=== PATIENT | female | born 1960 | race Caucasian/White ===

== ENCOUNTER 2020-07-17 10:50 | Outpatient (CLI) | payer BC, SELFPAY ==
--- NOTE | 2020-07-17 08:30 | DI.RAD_ITS ---
EXAM: XR SHOULDER LT COMPLETE 2+V CLINICAL HISTORY: left shoulder pain. TECHNIQUE: 2D digital imaging was performed. COMPARISON: No exams were available for comparison FINDINGS: BONES: No acute fracture is present. No bony destructive lesion is seen. JOINTS: No dislocation present. Mild spurring at the AC joint and undersurface of the acromion. No significant degenerative changes of the glenohumeral joint. SOFT TISSUE: Normal. IMPRESSION: Mild AC joint degenerative changes. DATA REPOSITORY: RADIATION DOSE DELIVERED:
--- NOTE | 2020-07-17 09:00 | DI.RAD_ITS ---
EXAM: XR JOINT SURVEY 1V INDICATION: pain. COMPARISON: CR XR SHOULDER LT COMPLETE 2+V from 07/17/2020 CR XR SHOULDER LT COMPLETE 2+V from 07/17/2020 TECHNIQUE: 2D digital imaging was performed. FINDINGS: An AP lordotic view was performed which includes both AC joints. There is mild bilateral AC joint s purring. The AC joints do not appear significantly widened and appear symmetric. IMPRESSION: Mild degenerative changes of the AC joints. DATA REPOSITORY: RADIATION DOSE DELIVERED:
== END 2020-07-17 10:51 | disposition home or self-care (01) ==
LOC: DIORS 10:50
PROVIDERS: PCP General Practice; Referring Provider General Practice; Visit Provider Student in an Organized Health Care Education/Training Program
DX: M25.512 Pain in left shoulder (principal); M19.012 Primary osteoarthritis, left shoulder
CPT/HCPCS: 73030; 77073

== ENCOUNTER 2021-01-15 12:58 | Outpatient (REF) | payer BC, SELFPAY ==
[2021-01-16 21:24] LABS: COVID-19 RT-PCR UVMMC Result Positive (Negative)
== END 2021-01-15 12:59 | disposition home or self-care (01) ==
LOC: LBN 12:58
PROVIDERS: Visit Provider Nurse Practitioner Family
DX: Z20.822 Contact with and (suspected) exposure to COVID-19 (principal)
CPT/HCPCS: U0003

== ENCOUNTER 2021-02-01 02:43 | Outpatient (CLI) | payer BC, SELFPAY ==
[2021-02-01 10:02] LABS: ALT 18 U/L (14-59); AST 16 U/L (15-37); Albumin 3.8 g/dL (3.4-5.0); Alkaline Phosphatase 68 U/L (46-116); Anion Gap 5.7 mmol/L (3-11); BUN 10 mg/dL (7-18); Bilirubin, Total 0.6 mg/dL (0.2-1.0); CO2 33.3 mmol/L (21.0-32.0); CREATININE 0.8 mg/dL (0.55-1.02); Calcium 9.1 mg/dL (8.5-10.1); Calculated LDL 165 mg/dL (<100); Chloride 104 mmol/L (98-107); Cholesterol 240 mg/dL (<200); Glucose 95 mg/dL (74-106); HDL Cholesterol 65 mg/dL (40-60); Potassium 4.2 mmol/L (3.5-5.1); Sodium 143 mmol/L (136-145); TSH (W/Ref FT4) 1.71 uIU/mL (0.36-3.74); Total Protein 7.2 g/dL (6.4-8.2); Triglyceride 54 mg/dL (<150)
== END 2021-02-01 02:44 | disposition home or self-care (01) ==
DX: E78.2 Mixed hyperlipidemia; G47.00 Insomnia, unspecified; L80 Vitiligo
CPT/HCPCS: 36415; 80053; 80061; 84443

== ENCOUNTER 2021-03-22 01:29 | Outpatient (CLI) | payer BC, SELFPAY ==
--- NOTE | 2021-03-22 12:20 | DI.MAMMO_ITS ---
Exam(s) MAMMO SCREENING EXAM: MAMMO SCREENING CLINICAL HISTORY: screening,Z12.39. TECHNIQUE: Bilateral full field digital CC and MLO mammographic images were obtained with 3D tomosyn thesis and utilizing computer aided detection (CAD). COMPARISON: Prior outside mammograms dating back to 2016, the most recent being March 2020. FINDINGS: There has been no significant change in the appearance and distribution of the fibroglandular tissue There are no CAD designations. There are no new spiculated masses nor malignant appearing microcalcification groups. There is no significant architectural distortion nor skin thickening-retraction. IMPRESSION: No radiographic evidence of malignancy. BI-RADS Category 1 - Negative Breast Density - Category B - Scattered areas of fibroglandular density Breast density Category C or D implies that the patient has dense breast tissue. Dense breast tissue can make it harder to find cancer on a mammogram. Dense breast tissue is also associated with an incr eased risk of breast cancer. This information about the result of the mammogram report was provided to the patient to raise their awareness. Use this report when you speak with the patient about their risks for breast cancer, which includes their family history. At that time, you may recommend additional screening tests (Ultrasoun d or MRI) as these tests may add significant information. A negative radiographic report should not delay biopsy if a dominant or clinically suspicious mass is present. Up to ten percent of cancers are not identified on mammography. A negative report may reinforce clinical impression. Adenosis and dense breasts may obscure an underlying neoplasm. False positive reports average 6 to 10%. Patient will receive a letter notifying them of these results.
== END 2021-03-22 01:49 ==
DX: Z12.31 Encounter for screening mammogram for malignant neoplasm of breast (principal)
CPT/HCPCS: 77063; 77067

== ENCOUNTER 2021-05-27 09:35 | Outpatient (CLI) | payer BC, SELFPAY ==
--- NOTE | 2021-05-27 09:15 | DI.RAD_ITS ---
Exam(s) XR HAND RT COMPLETE EXAM: XR HAND RT COMPLETE CLINICAL HISTORY: pain. TECHNIQUE: 2D digital imaging was performed. COMPARISON: No exams were available for comparison FINDINGS: There is no evidence of fracture nor dislocation. Small calcific densities are seen adjacent to the DIP joints of the 2nd-index and 3rd-middle fingers. Appears to be associated with some degenerative change which is more evident at the DIP joint of the index finger. Other interphalangeal joints appe ar unremarkable. Small density is noted adjacent to the lateral aspect of the index finger meta carp al head. Difficult to determine if this is osseous or subtle foreign body at this level. Correlatio n with clinical findings recommended. There is no evidence of osteomyelitis. There are no erosions at the level of the MCP joints nor elsewhere in the hand. IMPRESSION: DATA REPOSITORY: RADIATION DOSE DELIVERED:
--- NOTE | 2021-05-27 09:30 | DI.RAD_ITS ---
Exam(s) XR WRIST RT COMPL NAVICULAR EXAM: XR WRIST RT COMPL NAVICULAR CLINICAL HISTORY: pain. TECHNIQUE: 2D digital imaging was performed. COMPARISON: No exams were available for comparison FINDINGS: There is no evidence of acute fracture or carpal dislocation. No significant ulnar variance. Mild i ncreased density is noted in the lunate bone but no evidence of volume loss of this bone. No abnorma l density in the scaphoid bone. Scapholunate distance is normal. IMPRESSION: Mild increased density noted in the lunate. No other focal findings. Correlation with any history s uggesting AVN recommended. Scaphoid appears unremarkable. DATA REPOSITORY: RADIATION DOSE DELIVERED:
== END 2021-05-27 09:36 | disposition home or self-care (01) ==
PROVIDERS: Visit Provider Physician Assistant Surgical
DX: M79.641 Pain in right hand (principal); M25.531 Pain in right wrist; M19.131 Post-traumatic osteoarthritis, right wrist
CPT/HCPCS: 73110; 73130

== ENCOUNTER 2021-07-18 18:03 | Outpatient (REF) | payer BC, SELFPAY ==
[2021-07-20 12:39] LABS: COVID-19 RT-PCR UVMMC Result Negative (Negative)
== END 2021-07-18 18:04 | disposition home or self-care (01) ==
LOC: LBN 18:03
PROVIDERS: Visit Provider Emergency Medicine
DX: R05.9 Cough, unspecified (principal); R09.81 Nasal congestion; Z20.822 Contact with and (suspected) exposure to COVID-19
CPT/HCPCS: U0003

== ENCOUNTER 2021-10-18 07:16 | Day surgery (SDC) | payer BC, SELFPAY ==
--- NOTE | 2021-10-17 12:29 | W.COLOREPORT ---
Colonoscopy Report Date of procedure: 10/18/21 Pre-op diagnosis general: family hx of CRC- father in 50's Post-op diagnosis procedure note: other (I/E hemorrhoids/diverticula) Surgeon: Amairani Varma Anesthesia Type: General:No Airway Pathology: none sent Complications: None Disposition: same day Prep: Miralax/Dulcolax Retraction Time: 8 Procedure Description: After informed consent was obtained the patient was taken to the procedure room and placed in a left decubitous position. Monitors were applied and a time out was done. The patients name, date of , procedure, allergies to medications and metal in their body was reviewed. The patient was then sedated. Once sedated and comfortable a rectal exam was done. External exam was normal. Internal exam revealed a normal sphincter tone and no palpable masses. She has moderate internal and external hemorrhoids. The scope was then introduced and retrofelexed. Grade I internal hemorrhoids and hemorrhoidal tags were identified. The scope was then advanced to the cecum without difficulty. The TI and appendiceal orifice were identified. The prep was BB PS 3 in all segments for a total of 9.. The scope was then slowly retracted over 8 minutes back into the rectum. No AVMs or polyps were visualized today. She does have mil diverticular disease confined to the sigmoid colon with no signs of active bleeding or infection today. the scope was removed and the patient was woken up and taken back to Same day surgery in stable condition. The patient tolerated the procedure well and there were no immediate complications. Follow up: The patient should follow up in 5 years unless they develop changes in bowel habits or other new gastrointestinal complaints. We should also plan on doing internal hemorrhoid banding at the same time.
--- NOTE | 2021-10-17 12:40 | PDOC.DSDIS_ITS ---
Discharge Plan Disposition Patient Disposition: HOME Condition: Good Discharge Details Reason For Visit: colon scope Attending Provider: Amairani Varma Primary Care Provider: Christina Aguilar Home Meds and New Rx's Prescriptions: No Action fluticasone propion-salmeterol [Advair Diskus] 100-50 mcg/dose blister with device 1 ea Inhalation BID Qty: 60 4RF naproxen sodium [Aleve] 220 mg capsule 220 mg PO BID PRN fluticasone propionate [Flonase Allergy Relief] 50 mcg/actuation spray,suspension 1 spray intranasal BID Qty: 16 2RF Rx Instructions: administer in to left nostril 2 x per day cholecalciferol (vitamin D3) 2,000 UNIT tablet 2,000 unit PO DAILY albuterol sulfate 2.5 mg /3 mL (0.083 %) solution for nebulization 2.5 mg inhalation Q6H albuterol sulfate 90 mcg/actuation HFA aerosol inhaler 2 puff inhalation Q6H PRN (Reason: shortness of breath or wheezing) Qty: 6.7 6RF Discharge Instructions Additional Instructions: [facility] Colonoscopy Post- Op Instructions Instructions for Everyone who is given Anesthesia: For your safety, please do the following for the next twenty-four (24) hours: *Do Not operate a motor vehicle (car, truck, motorcycle, etc.) *Do Not drink alcoholic beverages or use any recreational drugs for the first 24 hours or while taking pain medications. The medications in your body may have a reaction that can be dangerous. *Do Not make any important decisions or sign any important papers. Findings: mild diverticula Make sure you are moving your bowels on a regular basis and avoid straining Follow up: repeat in 5 1. No lifting over 20 pounds or strenuous activity for the first 24 hours after your procedure. After 24 hours there are no restrictions on your activity but you may feel fatigued for a few days. 2. After you arrive home you may have a light meal and return to your normal diet as you can tolerate it without feeling sick to your stomach. 3. You may have a bloated, gaseous feeling in your belly (abdomen) after a colonoscopy. Passing gas and belching will help. Walking or lying down on your left side with your knees flexed may relieve the discomfort. Call the office at [phone] (Office) or [phone] (Hospital) right away if you notice any of the following: a.Vomiting of blood or ?coffee ground stools?. b.Rectal bleeding 1Tbsp, blood clots or continuous bleeding. c.Severe belly (abdominal) pain. d.A hard distended belly (abdomen) and an inability to pass gas. 4. Please don?t expect to have a normal BM (bowel movement) for 2-3 days after your procedure. 5. If there are questions regarding the findings of your procedure, please contact your doctor 6. If you are unable to contact your doctor with a problem, contact the hospital at [phone]. 7. Continue all your regular medications unless directed otherwise. I understand the above instructions and have no questions. Signature of Patient or Adult Escort Name of Responsible Adult Escort Signature of Nurse Date/Time Stand Alone Forms: Anesthesia Discharge Inst., Tracy Garcia ([facility]) Activity:: See above Diet:: See above Discharge Orders Discharge Orders: Discharge Order (Routine); Ordered 10/17/21 Ordered By: Amairani Varma
[2021-10-18 07:41] VITALS: BP 117/70; PULSE 73; RESP 18; TEMP 36.7; O2SAT 97
[2021-10-18] MEDS: Lactated Ringers 1,000 ML 80 ML IV (08:06)
--- NOTE | 2021-10-18 08:08 | W.ANESPRE ---
General Info Date of Service Date Performed: 10/18/21 Height: 5 ft Weight: 60.6 kg Body Mass Index (BMI): 26.1 Surgical Procedure: Operation Date: 10/18/21 08:20 Proposed Procedure Side Surgeon kajal Varma, Meds Allergies and Home Medications Allergies Allergy/AdvReac Type Severity Reaction Status Date / Time Sulfa (Sulfonamide Allergy Intermediate HIVES Verified 10/18/21 07:47 Antibiotics) Home Medication Medication Instructions Recorded cholecalciferol (vitamin D3) 50 2,000 unit PO DAILY 12/07/17 mcg (2,000 unit) tablet albuterol sulfate 2.5 mg/3 mL 2.5 mg inhalation Q6H 01/01/21 (0.083 %) solution for nebulization fluticasone propionate 50 1 spray intranasal BID #16 grams 02/26/21 mcg/actuation nasal spray,suspension (Flonase Allergy Relief) naproxen sodium 220 mg capsule 220 mg PO BID PRN 02/26/21 (Aleve) fluticasone 100 mcg-salmeterol 50 1 ea inhalation BID #60 ea 07/18/21 mcg/dose blistr powdr for inhalation (Advair Diskus) albuterol sulfate 90 mcg/actuation 2 puff inhalation Q6H PRN 07/22/21 aerosol inhaler shortness of breath or wheezing #6.7 grams Current Visit Medications: Current Medications Generic Name Dose Route Start Last Admin Trade Name Freq PRN Reason Stop Dose Admin Hyoscyamine Sulfate 0.125 mg 10/17/21 12:41 Hyoscyamine 0.125 Mg Sl/Oral/Chew SL DIRECTED PRN Ringer's Solution 1,000 mls @ 80 mls/hr 10/18/21 06:00 10/18/21 08:06 IV 11/16/21 23:59 80 mls/hr INFUSION ABDI Administration IV Miscellaneous Supplies 1 each 10/18/21 06:00 Iv Access IV 11/16/21 23:59 DIRECTED ABDI Ondansetron HCl 4 mg 10/17/21 12:41 Ondansetron 4 Mg/2 Ml Vial IVP Q4H PRN PRN Nausea / Vomiting Sodium Chloride 0 ml 10/18/21 06:00 Normal Saline Flush 10 Ml Syr IV 11/16/21 23:59 PRN PRN Sodium Chloride 0 ml 10/18/21 06:00 Normal Saline 10 Ml Vial IJ 11/16/21 23:59 DIRECTED PRN Sterile Water 0 ml 10/18/21 06:00 Water,Injection,Sterile 10 Ml Vial IJ 11/16/21 23:59 DIRECTED PRN PFSH Active Problems Active Problems: Problem Status Onset Code Colon cancer screening Z12.11 Colonic polyp K63.5 Asthma J45.909 Medical History Medical History Anxiety Arthritis Carpal tunnel syndrome right upper limb Elbow tendinitis Enlarged lymph nodes Glaucoma 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 stated when she delivered her 3rd child she had a reaction to anesthesia where her face swelled up, but has not had any reactions since then with any colonoscopies that she has had since then. Surgical History Surgical History H/O section x3 H/O tubal ligation S/P skin biopsy (~11/20/10) Tobacco Smoking/Tobacco Use Status: Never Second hand exposure: Yes Alcohol Alcohol Intake: current Alcohol intake frequency: a few times a month Alcohol type: beer, wine and hard liquor Substance Use Substance use: Never Substance use type: does not use Vital Signs and Lab Results Vital Signs Most Recent Vital Signs in EMR: Most Recent Vital Signs Temp Pulse Resp BP Pulse Ox 36.7 C 73 18 117/70 97 10/18/21 07:41 10/18/21 07:41 10/18/21 07:41 10/18/21 07:41 10/18/21 07:41 Lab Results Blood Type / Crossmatch: No Data to Display Complete Blood Count: No Data to Display Complete Metabolic Panel: No Data to Display Liver Function Panel: No Data to Display Coagulation Panel: No Data to Display Cardiac Panel: No Data to Display Arterial Blood Gas: No Data to Display Venous Blood Gas: No Data to Display Pancreas Panel: No Data to Display Thyroid Panel: No Data to Display Infectious Disease: No Data to Display Blood Cultures: No Data to Display Toxicology Panel: No Data to Display Anesthesia Assessment and Plan Anesthesia History Personal History: Other Family History: No Family History of Anesthesia Complications Exercise Tolerance Exercise Tolerance: Metabolic Equivalents>4 Pertinent Negatives Pertinent Negatives: No Major Cardiovascular Symptoms or Complaints and No Major Pulmonary Symptoms or Complaints Cardiac & Pulmonary Exam Cardiac Exam: Normal S1/S2 Heart Sounds Pulmonary Exam: Clear Bilateral Breath Sounds Implantable Cardiac Device Does patient have a Pacemaker or an ICD?: No Airway Exam Known Difficult Airway: No Mallampati Class: 2 Mouth Opening: Normal (> 3cm) Thyromental Distance: Greater than 3 cm Neck Range of Motion: Full ROM Neck Circumference: Normal Teeth Condition: Normal Dentition ASA Classification ASA Score: ASA 2 Emergency Case?: No NPO Status NPO Status: NPO Clears >2 hours, Solids >8 hours Anesthesia Plan Resuscitation Status: Full Code Anesthesia Technique: General Anesthesia Airway Planned: Natural Airway Monitors Used: Standard Monitors
[2021-10-18 08:10] VITALS: BMI 26.1
[2021-10-18 08:59] VITALS: BP 76/47; PULSE 67; RESP 18; TEMP 36.6; O2SAT 99
[2021-10-18 09:06] VITALS: BP 80/45; PULSE 65; RESP 18; TEMP 36.7; O2SAT 99
[2021-10-18] MEDS: Hyoscyamine 0.125 MG SL/ORAL/CHEW SL (09:11)
[2021-10-18 09:20] VITALS: BP 106/93; PULSE 65; RESP 18; TEMP 36.6; O2SAT 100
[2021-10-18 09:37] VITALS: BP 99/54; PULSE 63; RESP 18; TEMP 36.6; O2SAT 100
--- NOTE | 2021-10-18 14:01 | W.ANESPOSTOP ---
Postoperative Evaluation Date, Time and Location Date Performed: 10/18/21 Time Performed: 09:37 Patient Location: Day Surgery Unit Vital Signs Most Recent Imported Vital Signs: Most Recent Vital Signs Temp Pulse Resp BP Pulse Ox 36.6 C 63 18 99/54 L 100 10/18/21 09:37 10/18/21 09:37 10/18/21 09:37 10/18/21 09:37 10/18/21 09:37 Pain Score Most Recent Pain Score: Most Recent Pain Score Pain Level 1 10/18/21 09:37 Assessment Mental Status: Awake (Alert & Oriented to Patient Baseline) Airway and Respiratory Function: Patent airway with normal (patient baseline) respiratory exam Cardiovascular Function: Hemodynamically Stable Hydration Status: Adequately Hydrated Nausea & Vomiting: No Nausea or Vomiting Pain: Pt. Denies Any Pain Peripheral Nerve Block: Patient did not receive a nerve block
== END 2021-10-18 07:17 | disposition home or self-care (01) ==
PROVIDERS: PCP Family Medicine; Visit Provider Surgery
PROC: 0DJD8ZZ Inspection of Lower Intestinal Tract, Via Natural or Artificial Opening Endoscopic (ICD-10-PCS; CPT 45378; principal; 2021-10-18 08:15)
DX: Z12.11 Encounter for screening for malignant neoplasm of colon (principal); Z80.0 Family history of malignant neoplasm of digestive organs; K64.0 First degree hemorrhoids; K57.30 Diverticulosis of large intestine without perforation or abscess without bleeding
CPT/HCPCS: 45378; J3490

== ENCOUNTER 2022-04-23 05:06 | Outpatient (CLI) | payer BC, SELFPAY ==
[2022-04-23 08:27] LABS: ALT 19 U/L (14-59); AST 19 U/L (15-37); Albumin 3.7 g/dL (3.4-5.0); Alkaline Phosphatase 65 U/L (46-116); Anion Gap 5.8 mmol/L (3-11); BUN 11 mg/dL (7-18); Bilirubin, Total 0.5 mg/dL (0.2-1.0); CO2 32.2 mmol/L (21.0-32.0); CREATININE 0.9 mg/dL (0.55-1.02); Calcium 8.9 mg/dL (8.5-10.1); Calculated LDL 154 mg/dL (<100); Chloride 103 mmol/L (98-107); Cholesterol 235 mg/dL (<200); Estimated GFR 71.83 (mL/min/1.73m2); Glucose 108 mg/dL (74-106); HDL Cholesterol 68 mg/dL (40-60); Potassium 3.6 mmol/L (3.5-5.1); Sodium 141 mmol/L (136-145); Total Protein 7.3 g/dL (6.4-8.2); Triglyceride 67 mg/dL (<150)
== END 2022-04-23 05:07 | disposition home or self-care (01) ==
LOC: LOS 05:06 → LBO 07:57
PROVIDERS: PCP Nurse Practitioner Family
DX: Z00.00 Encounter for general adult medical examination without abnormal findings (principal); E78.5 Hyperlipidemia, unspecified; F41.8 Other specified anxiety disorders
CPT/HCPCS: 36415; 80053; 80061

== ENCOUNTER 2022-05-16 09:53 | Outpatient (CLI) | payer BC, SELFPAY ==
--- NOTE | 2022-05-16 09:00 | DI.RAD_ITS ---
Exam(s) XR ANKLE LT COMPLETE EXAM: XR ANKLE LT COMPLETE CLINICAL HISTORY: continued left ankle pain, rolled it 5 months ago M25.572 PAIN LEFT ANKLE TECHNIQUE: 2D digital imaging was performed of the left ankle. Three images were obtained. AP, lat eral and oblique views were obtained. COMPARISON: No exams were available for comparison FINDINGS: BONES: No acute fracture is present. No bony destructive lesion is seen. JOINTS:The ankle mortise is normally aligned. SOFT TISSUE: Vascular calcifications are present. IMPRESSION: Unremarkable radiographs of the left ankle. DATA REPOSITORY: RADIATION DOSE DELIVERED:
--- OUTSIDE RECORDS SUMMARY | 2022-05-16 09:56 | XMS_ITS ---
:1960 Author Organization [facility] Address [address] [place], [place] [id number] Care Team Providers Name Role Phone Jose Eli Unavailable Unavailable PROBLEMS Type Condition ICD9-CM Code HRP33-HR Code Onset Condition SNO MED Code Dates Status Problem Asthma with acute 493.92 Active 28 1801993 exacerbation Problem Allergic asthma 493.00 Active 6308 8003 w/o mention of status asthmaticus or acute exacerbation Problem BENIGN NEOPLASM - 211.3 Active 92 079609 POLYPS ALLERGIES Substance Reaction Event Type Date Status Sulfa Hives Non Drug Allergy Jan, Active environmental Unknown Non Drug Allergy Jan, Active ENCOUNTERS Encounter Location Date Diagnosis [address] Jan, Encntr fo r educational recruiter exam [address] (general) (routi ne) w/o abn [place], [place] findings Z01.[id number] Jan, Encntr fo r educational recruiter exam [facility] [address] (general) (routi ne) w/o abn [place], [place] findings Z01.[id number] Dec, Encounter for screening [address] mammogram for gabriel floresant [place], [place] neoplasm of [address] Z12.[id number] Jan, [address] [place] [id number] Jan, Encntr fo r educational recruiter exam [facility] [address] (general) (routi ne) w/o abn [place], [place] findings Z01.419 and [id number] Encounter for sc reening mammogram for ma lignant neoplasm of bartol[address] st Z12.[address] Jan, Encntr fo r educational recruiter exam [address] (general) (routi ne) w/o abn [place] findings Z01.419 and [id number] Encounter for sc reening for malignant neopla sm of cervix Z12.[address] Dec, Encounter for screening [address] mammogram for ma lignant [place] neoplasm of [address] Z12.[id number] Dec, [place] [id number] [address] Dec, Encntr fo r educational recruiter exam [facility] [address] (general) (routi ne) w/o abn [place], [place] findings Z01.[id number] August, Encounter for screening for [address] malignant neopla sm of [place] breast Z12.[id number] Nov, Encntr fo r educational recruiter exam [address] (general) (routi ne) w/o abn [place] findings Z01.419 and Other [id number] screening mammog brant Z12.[address] Nov, ROUTINE G YN EXAMINATION [facility] [address] V72.31 [place], [place] [id number] [address] August, ROUTINE G YN EXAMINATION [facility] [address] V72[address]31 [place], [place] [id number] [address] August, SCREEN MA MMOGRAM NEC V76.[address] [facility] [address] [place], [place] [id number] [address] August, ROUTINE G YN EXAMINATION [facility] [address] V72[address]31 [place], [place] [id number] [address] Jul, SCREEN MA MMOGRAM NEC V76.[address] [facility] [address] [place], [place] [id number] [address] Jan, ROUTINE G YN EXAMINATION [facility] [address] V72.31 [place], [place] [id number] [facility] [address] [place] [address] Nov, [facility] [address] [place] [address] [id number] [facility] [address] [place] [address] Nov, [facility] Road [address] [place] [address] [id number] [facility] [address] [place] [address] Nov, NEOPLAS M NOS 239.9 [facility] Road [address] [place] [id number] August, [place], [place] [id number] [address] August, [place] [id number] [address] Jul, SCREEN MA MMOGRAM NEC V76.[address] [id number] [address] Jun, [employer] ONTINENCE 788.33 [facility] [address] [place] [id number] Apr, Epicond ylitis 726.32 [place], [place] [id number] [address] Jan, ROUTINE G YN EXAMINATION [facility] [address] V72.31 and SCREE N MAMMOGRAM [place] NEC V76.[id number] Oct, [place] [id number] [address] Oct, [place] [id number] [address] Jul, ROUTINE MEDICAL EXAM (18 [place] YRS [place] OLDER ) V70.0 ; [id number] Allergic asthma w/o mention of status asthma ticus or acute exacerbati on 493.00 ; SCREEN-CARDIOVAS C NEC V81.2 ; SCREEN-THYROID DISORDER V77.0 ; Anemia, iron deficiency, unsp ecified 280.9 and Lympha denopathy 785.[address] Jun, Asthma with acute [place] exacerbation 493.92 ; Acute [id number] maxillary sinusi tis 461.0 and Acute otitis media NOS 382.[address] Jan, ROUTINE G YN EXAMINATION [facility] 31 V72.31 [place], [place] [id number] [facility] [address] [place] [address] Nov, [facility] Road [address] [place] [id number] Oct, BENIGN NEOP LASM - POLYPS [facility] [place], [place] 211.3 [id number] [facility] [address] [place] [address] 16 Oct, 2008 [facility] [address] [place] [address] [id number] [facility] [address] [place] [address] August, [place], [place] [id number] [facility] [address] [place] [address] August, ROUTINE MEDICAL EXAM (18 [place] YRS [place] OLDER ) V70.0 ; [id number] Vitiligo 709.01 and ASTHMA NOS 493.[address] Jul, Current tear of medial [place] cartilage or meniscus of [id number] knee 836.0 ; Lax ity of ligament 728.4 a nd Sprain of medial collat eral ligament of knee 844.[address] Jul, Joint p ain,knee 719.46 and [place] Laxity of lig ament 728.[id number] Jul, [place], [place] [id number] IMMUNIZATIONS Vaccine Route Administration Date Status TD VACCINE - Adults Unknown November 07, 2010 Administered Tdap - Adult IM Intramuscular July 10, 2009 Administered PNEUMOCOCCAL VACCINE (6 YRS AND IM Intramuscular July 10, 2009 Administered OLDER) Peds - Td Unknown November 12, 1997 Administered SOCIAL HISTORY Qualifiers Date Never Smoker REASON FOR REFERRAL FUNCTIONAL STATUS PLAN OF CARE Activity Details Follow Up [facility] in 1 Year Reason: Future Test MAMMOGRAPHY BILATERAL SCREE [id number] VITAL SIGNS Height 61.5 in 2021-02-13 Height 61.5 in 2020-02-01 Height 61.5 in 2019-01-19 Height 61.5 in 2018-01-18 Height 61.5 in 2016-12-29 Height 61.5 in 2015-12-19 Height 61.5 in 2015-11-26 Height 61.5 in 2014-11-20 Height 61.5 in 2013-09-09 Height 61.5 in 2012-08-23 Height 61.5 in 2011-02-14 Height 61.5 in 2010-11-20 Height 61.5 in 2010-07-15 Height 61.5 in 2010-05-20 Height 61.5 in 2010-02-08 Height 62 in 2009-08-14 Height 61 in 2009-02-02 Weight 137.2 lbs 2021-02-13 Weight 132.8 lbs 2020-02-01 Weight 126.4 lbs 2019-01-19 Weight 139.2 lbs 2018-01-18 Weight 141.6 lbs 2016-12-29 Weight 137.4 lbs 2015-12-19 Weight 139.4 lbs 2015-11-26 Weight 138.8 lbs 2014-11-20 Weight 139.2 lbs 2013-09-09 Weight 140 lb 6 oz lbs 2012-08-23 Weight 138.6 lbs 2011-02-14 Weight 135 lbs 2010-11-20 Weight 141.6 lbs 2010-07-15 Weight 141.4 lbs 2010-07-12 Weight 140.1 lbs 2010-05-20 Weight 138.4 lbs 2010-02-08 Weight 135.6 lbs 2009-08-14 Weight 134.4 lbs 2009-07-10 Weight 134 lbs 2009-02-02 Weight 130.6 lbs 2008-09-07 Weight 103.4 lbs 2008-08-09 Temperature 95.8 degrees Fahrenheit 2010-11-20 Temperature 97.7 degrees Fahrenheit 2010-05-20 Temperature 97.9 degrees Fahrenheit 2009-08-14 Temperature 98.0 degrees Fahrenheit 2009-07-10 Temperature 98.4 degrees Fahrenheit 2008-09-07 Heart Rate 72 /min 2010-11-20 Heart Rate 64 /min 2010-05-20 Heart Rate 82 /min 2009-08-14 Heart Rate 84 /min 2009-07-10 Heart Rate 80 /min 2008-09-07 Heart Rate 64 /min 2008-08-09 Oximetry 99 2009-07-10 Oximetry 100 2008-09-07 Respiratory Rate 16 /min 2010-11-20 Respiratory Rate 16 /min 2010-05-20 Respiratory Rate 16 /min 2009-08-14 Respiratory Rate 16 /min 2009-07-10 Respiratory Rate 18 /min 2008-09-07 Respiratory Rate 16 /min 2008-08-09 BMI 25.50 kg/m2 2021-02-13 BMI 24.68 kg/m2 2020-02-01 BMI 23.49 kg/m2 2019-01-19 BMI 25.87 kg/m2 2018-01-18 BMI 26.32 kg/m2 2016-12-29 BMI 25.54 kg/m2 2015-12-19 BMI 25.91 kg/m2 2015-11-26 BMI 25.80 kg/m2 2014-11-20 BMI 25.87 kg/m2 2013-09-09 BMI 26.09 kg/m2 2012-08-23 BMI 25.76 kg/m2 2011-02-14 BMI 25.09 kg/m2 2010-11-20 BMI 26.32 kg/m2 2010-07-15 BMI 26.04 kg/m2 2010-05-20 BMI 25.72 kg/m2 2010-02-08 BMI 24.80 kg/m2 2009-08-14 BMI 25.32 kg/m2 2009-02-02 Blood pressure systolic 140 mm Hg 2021-02-13 Blood pressure diastolic 74 mm Hg 2021-02-13 MEDICATIONS Medication Instructions Dosage Frequency Start End Duration Statu s Date Date MEDICATION . 1 day Active LIST: The following medication list was created by your report.If the medications on the printed list differ from the medications you take at home, please contact your primary care provider. Advair Diskus Inhalation Twice 1 puff 12h Jan, ctive 100-50 MCG/DOSE a day 2020 Vitamin D 1000 Orally Once a 4,000 24h Act darrin UNIT day Ventolin HFA Inhalation four 2 puffs Jun, day Not -Takin 108 (90 Base) times a day as 2009 g MCG/ACT needed Albuterol Inhalation q4-6 1 neb. prn Jul, Act darrin Sulfate (2.5 hours prn 2010 MG/3ML) 0.083% Advil 200 MG Orally at night 1 tablet No t-Takin g PROCEDURES Procedure Date Ordered Result Body Site IMMUNIZATION ADMINISTRATION July 10, 2009 PNEUMOCOCCAL VACCINE (6 YRS AND OLDER) July 10, 2009 BIOPSY OF SKIN SINGLE LESION Nov 20, 2010 IMMUNIZATION ADMIN, EACH ADD July 10, 2009 Tdap - Adult July 10, 2009 COLONOSCOPY W HOT BIOPSY November 14, 2008 RESULTS Name Result Date Reference Range MG MAMMOGRAPHY BILATERAL SCREENING 2020-03-21 MG MAMMOGRAPHY BILATERAL SCREENING 2019-02-17 Pap Lb, rfx HPV all pth 2018-01-18 . Note: . Clinical history: DIAGNOSIS: Specimen adequacy: Additional comment: Recommendation: Performed by: Electronically signed by: Test ordered: Maturation index: Amended report: Addendum: QC reviewed by: Cytology history: Special procedure: QA comment: Diagnosis provided by: Source: Pathologist provided ICD9: Clinician provided ICD9: Interpretation LBP CPT Code Automation MG MAMMOGRAPHY BILATERAL SCREENING 2018-01-21 MG MAMMOGRAPHY BILATERAL SCREENING 2013-09-09 Pap Lb, rfx HPV all pth 2012-08-23 . Note: . Clinical history: DIAGNOSIS: Specimen adequacy: Additional comment: Recommendation: Performed by: Electronically signed by: Test ordered: Maturation index: Amended report: Addendum: QC reviewed by: Cytology history: Special procedure: QA comment: Diagnosis provided by: Source: Pathologist provided ICD9: Clinician provided ICD9: Interpretation LBP CPT Code Automation MG MAMMOGRAPHY BILATERAL SCREENING 2012-08-23 MG MAMMOGRAPHY BILATERAL SCREENING 2011-08-12 MAMMOGRAPHY BILATERAL SCREE 2010-08-06 T4, FREE 2009-08-14 FREE T4 0.71 0.61-1.12 CBC WITH DIF 2009-08-14 CBC WITH DIF WBC 4.4 4.80-10.80 RBC 3.97 4.20-5.40 HGB 12.9 12.0-16.0 HCT 37.5 37.0-47.0 MCV 94.6 81.0-99.0 MCH 32.7 27.0-31.0 MCHC 34.5 32.0-36.0 RDW 13.1 11.50-14.50 PLT 234 130-400 MPV 6.4 7.40-10.40 NE% 53.9 42.20-75.20 LY% 34.4 20.50-51.10 MO% 7.3 1.70-9.30 EO% 3.9 0.90-2.90 BA% 0.5 0.0-0.80 NE# 2.4 1.40-6.50 LY# 1.5 1.20-3.40 MO# 0.3 0.10-0.60 EO# 0.2 0.0-0.20 BA# 0.0 0.0-0.20 RBC MORPH ANISO MICRO MACRO HYPO PLT ESTIMATE TSH 2009-08-14 TSH 1.19 0.49-4.67 CORONARY RISK PROFILE 2009-08-14 CORONARY RISK PROFILE CORONARY RISK PROFILE CHOLESTEROL 203 129-209 TRIGLYCERIDES 58 40-175 HDL CHOL 49 39-90 NON HDL CHOL 154 100-190 LDL DIRECT 133 10-100 CHD RISK 4.1 2.30-5.90 MAMMOGRAPHY BILATERAL SCREE 2009-08-03 XR CHEST PA&LAT 2009-07-04 Colonoscopy CBC WITH DIF 2008-09-07 CBC WITH DIF WBC 6.5 4.80-10.80 RBC 4.10 4.20-5.40 HGB 13.4 12.0-16.0 HCT 38.9 37.0-47.0 MCV 94.9 81.0-99.0 MCH 32.6 27.0-31.0 MCHC 34.3 32.0-36.0 RDW 13.1 11.50-14.50 PLT 290 130-400 MPV 7.6 7.40-10.40 NE% 59.2 42.20-75.20 LY% 29.9 20.50-51.10 MO% 6.1 1.70-9.30 EO% 4.5 0.90-2.90 BA% 0.3 0.0-0.80 NE# 3.9 1.40-6.50 LY# 1.9 1.20-3.40 MO# 0.4 0.10-0.60 EO# 0.3 0.0-0.20 BA# 0.0 0.0-0.20 RBC MORPH ANISO MICRO MACRO HYPO PLT ESTIMATE TSH 2008-09-07 TSH TSH 1.05 0.49-4.67 [facility]IN - [facility] 2008-09-07 [facility]IN - [facility] FERRITIN 10 11-307 B12/FOLATE 2008-09-07 B12/FOLATE B12 298 FOLATE 13.6 MAMMOGRAPHY BILATERAL SCREE 2008-07-25 REASON FOR VISIT TICKER WIRER well woman, TICKER WIRER Well Woman, TICKER WIRER well woman, TICKER WIRER EST WELL WOMAN, *Mammogram scheduling, Breast Imaging, TICKER WIRER well woman, TICKER WIRER EST WELL WOMAN, Mammo order needed, Update Demographics - Additional Info,TICKER WIRER EST WELL WOMAN EXAM, TICKER WIRER EST WELL WOMAN EXAM, Appt for well woman exam & Mammo order needed,TICKER WIRER Well woman exam, TICKER WIRER wellwoman, TICKER WIRER well woman, TICKER WIRER well woman exam, mammo order, TICKER WIRER Well WomanExam-no issues to discuss, mammogram, Annual pe and pap-has had a chest cold/sinus issues x 3 weeks,LAZARA, ? infection biopsy site, staph infection, infection?, LAZARA lymphadenopathy groin, referring Zoe Waldrop, script dose, script refill, mammogram order, TICKER WIRER Bladder issues-is having incontinence and frequency that has recently gotten worse. negative urinalysis in the office, TICKER WIRER Bladder issues-hasbeen having urinary frequency, has had issues with leaking for a long time, IM - Right elbow pain, Annual pe and pap-no issues to discuss, med refill, script refill , IM PE //PAP & Breast exam doneby Dr Eli in June 2009, recent mammogram, IM head cold, here for annual-no issues, results, preload emr clinical data, pe, referral to Ortho for partial MCL tear, TWISTED KNEE, popped L knee out of joint last Thursday, aches, doesn't feel right - stiff , preload EMR clinical data Insurance Providers [facility] Member Patient Patient Patient Patient Patient Subscriber Subscriber Subscriber Group Insurance Plan Plan Plan Plan ID Relationship Address Phone Name Date of ID Name Date of No Type Insurance Insurance Insurance Coverage to Subscriber Address Phone Name Dates [place] [phone] [place] self [place]isa [id number] ATTN 45 [id number] [place] [id number] [place] [phone] [place] [id number] ATTN 45 Mas [address] [place] [id number] [place] [phone] [place] [id number] ATTN 45 Mas [id number] [place] [id number] [place] [phone] [place] [id number] ATTN 45 Mas 46 000 CLAIMS [facility] [id number] [place] [phone] [place] self Melisa [id number] H [id number] PILGRIM [id number] [facility] [id number] CARE [place] [phone] [place] [id number] ATTN 45 Mas 13 000 CLAIMS [facility] [id number] [place] [phone] [place] self Melisa [id number] H [id number] PILGRIM [id number] [facility] [id number] CARE
== END 2022-05-16 10:13 ==
LOC: DI 09:54
PROVIDERS: PCP Nurse Practitioner Family; Visit Provider Nurse Practitioner Family
DX: M25.572 Pain in left ankle and joints of left foot (principal)
CPT/HCPCS: 73610

== ENCOUNTER 2022-06-02 00:14 | Outpatient (CLI) | payer BC, SELFPAY ==
--- NOTE | 2022-06-02 07:30 | DI.MAMMO_ITS ---
Exam(s) MAMMO SCREENING EXAM: MAMMO SCREENING CLINICAL HISTORY: screening,z12.39 TECHNIQUE: Mammograms were interpreted according to the usual protocol including computer analysis w [employer] CAD system, tomosynthesis and C-view imaging. COMPARISON: 2015 through 2020 FINDINGS: The breasts are composed of scattered fibroglandular densities, Breast Density category B. No suspicious masses or suspicious microcalcifications are seen. No skin thickening or abnormal axillary lymph nodes are seen. There has been no significant change from prior exams. IMPRESSION: BI-RADS Category 1, Negative mammogram Yearly screening mammography is recommended. Breast Density - Category B, scattered fibroglandular densities. A negative radiographic report should not delay biopsy if a dominant or clinically suspicious mass is present. Up to ten percent of cancers are not identified on mammography. A negative report may reinforce clinical impression. Adenosis and dense breasts may obscure an underlying neoplasm. False positive reports average 6 to 10%. Patient will receive a letter notifying them of these results.
== END 2022-06-02 00:34 ==
LOC: DI 00:15
PROVIDERS: PCP Nurse Practitioner Family; Visit Provider Nurse Practitioner Family
DX: Z12.31 Encounter for screening mammogram for malignant neoplasm of breast (principal)
CPT/HCPCS: 77063; 77067

== ENCOUNTER 2022-11-06 15:16 | Outpatient (REF) | payer BC, SELFPAY ==
[2022-11-06 21:33] LABS: Abs Immature Grans 0.02 10^3/uL (0.0-0.06); Absolute Basophil Count 0.03 10^3/uL (0.0-0.2); Absolute Eosinophil Count 0.03 10^3/uL (0.0-0.7); Absolute Lymphocyte Count 0.72 10^3/uL (1.2-3.4); Absolute Monocyte Count 0.27 10^3/uL (0.1-0.8); Absolute Neutrophil Count 3.63 10^3/uL (1.2-6.7); Basophils % 0.6; Eosinophils % 0.6; HCT 38.2 % (36.0-46.0); HGB 13.1 g/dL (11.2-15.7); Immature Grans % 0.4; Lymphocytes % 15.3; MCH 31.2 pg (27.0-33.0); MCHC 34.3 % (32.0-36.0); MCV 91 fL (80-95); Monocytes % 5.7; Neutrophils % 77.4; Platelet Count 157 10^3/uL (130-400); RDW-SD 43.1 fL
[2022-11-10 09:16] LABS: Lyme Ab w Rflx to Lyme Confirm Negative (Negative)
[2022-11-11 15:38] LABS: Anaplasma phagocytophilum Negative (Negative); B. miyamotoi PCR Negative (Negative); Babesia divergens/MO-1 Negative (Negative); Babesia duncani Negative (Negative); Babesia microti Negative (Negative); Ehrlichia chaffeensis Negative (Negative); Ehrlichia ewingii/canis Negative (Negative); Ehrlichia muris eauclairensis Negative (Negative)
== END 2022-11-06 15:17 | disposition home or self-care (01) ==
LOC: LBN 15:16
PROVIDERS: PCP Nurse Practitioner Family; Visit Provider Physician Assistant
DX: A69.20 Lyme disease, unspecified (principal)
CPT/HCPCS: 87798; 85025; 86618

== ENCOUNTER → 2023-06-08 01:28 | Outpatient (CLI) | payer BC, SELFPAY ==
--- NOTE | 2023-06-08 07:00 | DI.MAMMO_ITS ---
Exam(s) MAMMO SCREENING EXAM: MAMMO SCREENING CLINICAL HISTORY: screening,z12.39 TECHNIQUE: Bilateral full field digital CC and MLO mammographic images were obtained with 3D tomosyn thesis and utilizing computer aided detection (CAD). COMPARISON: Available for comparison. FINDINGS: Masses/Architectural Distortion: None seen. Microcalcifications: No suspicious pleomorphic-type are seen. Skin Thickening/Nipple Retraction: None. IMPRESSION: 1. No significant interval change with no specific features of malignancy noted. 2. Unless there is more urgent need, screening mammography is recommended, as per [employer] guidelines. BI-RADS Category 1 - Negative Breast Density - Category B - Scattered areas of fibroglandular density Breast density category C or D implies that the patient has dense breast tissue. Dense breast tissue is very common and is not abnormal but dense breast tissue can make it harder to find cancer on a ma mmogram. Also, dense breast tissue may increase their breast cancer risk. This information about the result of the mammogram report was provided to the patient to raise their awareness. Use this report when you speak with the patient about their risks for breast cancer, which includes their family hist ory. At that time, you may recommend for more screening tests (Ultrasound or MRI) as they might be us eful based on their risk. A negative radiographic report should not delay biopsy if a dominant or clinically suspicious mass is present. Up to ten percent of cancers are not identified on mammography. A negative report may reinforce clinical impression. Adenosis and dense breasts may obscure an underlying neoplasm. False positive reports average 6 to 10%. Patient will receive a letter notifying them of these results.
== END ==
PROVIDERS: PCP Nurse Practitioner Family; Visit Provider Nurse Practitioner Family
DX: Z12.31 Encounter for screening mammogram for malignant neoplasm of breast (principal)
CPT/HCPCS: 77063; 77067

== ENCOUNTER 2023-06-08 13:59 | Outpatient (CLI) | payer BC, SELFPAY ==
[2023-06-08 09:17] LABS: HCT 40.6 % (36.0-46.0); HGB 13.5 g/dL (11.2-15.7); MCH 30.9 pg (27.0-33.0); MCHC 33.3 % (32.0-36.0); MCV 93 fL (80-95); Platelet Count 217 10^3/uL (130-400); RBC 4.37 10^6/uL (3.93-5.22); RDW 13.2 % (11.7-14.6); RDW-SD 45.4 fL; WBC 4.26 10^3/uL (4.4-10.8)
[2023-06-08 09:44] LABS: ALT 27 U/L (14-59); AST 20 U/L (15-37); Albumin 3.8 g/dL (3.4-5.0); Alkaline Phosphatase 64 U/L (46-116); Anion Gap 7.3 mmol/L (3-11); BUN 12 mg/dL (7-18); Bilirubin, Total 0.7 mg/dL (0.2-1.0); CO2 31.7 mmol/L (21.0-32.0); CREATININE 0.8 mg/dL (0.55-1.02); Calculated LDL 156 mg/dL (<100); Chloride 104 mmol/L (98-107); Cholesterol 238 mg/dL (<200); Estimated GFR 82.23 (mL/min/1.73m2); Glucose 108 mg/dL (74-106); HDL Cholesterol 69 mg/dL (40-60); Potassium 4.1 mmol/L (3.5-5.1); Sodium 143 mmol/L (136-145); Total Protein 7.3 g/dL (6.4-8.2); Triglyceride 65 mg/dL (<150)
[2023-06-08 10:51] LABS: Hemoglobin A1C 5.4 % (<5.7)
== END 2023-06-08 14:00 | disposition home or self-care (01) ==
LOC: LBO 14:01
PROVIDERS: PCP Nurse Practitioner Family; Visit Provider Nurse Practitioner Family
DX: Z00.00 Encounter for general adult medical examination without abnormal findings (principal); M25.572 Pain in left ankle and joints of left foot; J45.909 Unspecified asthma, uncomplicated
CPT/HCPCS: 36415; 80053; 80061; 85027; 83036

== ENCOUNTER 2024-02-11 01:33 | Outpatient (CLI) | payer MEDICARE, BC, SELFPAY ==
--- NOTE | 2024-02-11 | DI.DEXA_ITS ---
Exam(s) XR DEXA BONE DENSITY W/WO MICHAELA EXAM: XR DEXA BONE DENSITY W/WO MICHAELA CLINICAL HISTORY: Asymptomatic age-related postmenopausal state, Z78.0 TECHNIQUE: COMPARISON: No exams were available for comparison FINDINGS: Lateral Spine Image: Unremarkable. No compression deformities identified. Left hip: Total T-Score: 0.6 Total Z-Score: 1.8 T- and Z-scores: Within normal limits. Lumbar Spine: Total T-Score: 1.6 Total Z-Score: 3.4 T- and Z-scores: Within normal limits. IMPRESSION: No evidence of osteoporosis.
== END 2024-02-11 01:53 ==
PROVIDERS: PCP Nurse Practitioner Family; Visit Provider Obstetrics & Gynecology
DX: Z13.820 Encounter for screening for osteoporosis (principal); Z78.0 Asymptomatic menopausal state
CPT/HCPCS: 77080

== ENCOUNTER 2024-06-09 00:29 | Outpatient (CLI) | payer MEDICARE, SELFPAY ==
--- NOTE | 2024-06-09 08:51 | DI.MAMMO_ITS ---
Exam(s) MAMMO SCREENING EXAM: MAMMO SCREENING CLINICAL HISTORY: screening,Z12.39 TECHNIQUE: Bilateral full field digital CC and MLO mammographic images were obtained with 3D tomosyn thesis and utilizing computer aided detection (CAD). COMPARISON: Available for comparison. FINDINGS: Masses/Architectural Distortion: No suspicious masses or areas of architectural distortion are presen t. Microcalcifications: No suspicious pleomorphic-type are seen. Skin Thickening/Nipple Retraction: None. IMPRESSION: 1. No significant interval change with no specific features of malignancy noted. 2. Unless there is more urgent need, screening mammography is recommended, as per [place] [employer] guidelines. BI-RADS Category 1 - Negative Breast Density - Category B - Scattered areas of fibroglandular density Breast density category C or D implies that the patient has dense breast tissue. Dense breast tissue is very common and is not abnormal but dense breast tissue can make it harder to find cancer on a ma mmogram. Also, dense breast tissue may increase their breast cancer risk. This information about the result of the mammogram report was provided to the patient to raise their awareness. Use this report when you speak with the patient about their risks for breast cancer, which includes their family hist ory. At that time, you may recommend for more screening tests (Ultrasound or MRI) as they might be us eful based on their risk. A negative radiographic report should not delay biopsy if a dominant or clinically suspicious mass is present. Up to ten percent of cancers are not identified on mammography. A negative report may reinforce clinical impression. Adenosis and dense breasts may obscure an underlying neoplasm. False positive reports average 6 to 10%. Patient will receive a letter notifying them of these results.
== END 2024-06-09 00:49 ==
PROVIDERS: PCP Nurse Practitioner Family; Visit Provider Nurse Practitioner Family
DX: Z12.31 Encounter for screening mammogram for malignant neoplasm of breast (principal); R92.323 Mammographic fibroglandular density, bilateral breasts
CPT/HCPCS: 77063; 77067

== ENCOUNTER 2024-06-27 06:04 | Inpatient (IN) | payer MEDICARE, SELFPAY ==
[2024-06-27] VITALS (63 sets, daily range): BP systolic 95–124; BP diastolic 40–67; PULSE 63–86; RESP 11–30; TEMP 36.1–37.3; O2SAT 90–99; BMI 26.4
--- NOTE | 2024-06-27 06:30 | DI.CT_ITS ---
Exam(s) CT ABDOMEN PELVIS W EXAM: CT ABDOMEN PELVIS W CLINICAL HISTORY: RLQ TTP, nausea TECHNIQUE: Imaging Protocol: Axial computed tomography images with coronal and sagittal reformatted images were created and reviewed. CONTRAST MATERIAL: Intravenous: Omnipaque 350 Contrast volume:75 mL Oral: No COMPARISON: No exams were available for comparison FINDINGS: ABDOMEN: Lung Bases: No acute abnormality. Liver: Normal density. No measurable mass. Portal, Superior Mesenteric, and Splenic Veins: Unremarkable. Gallbladder and Biliary Tract: No radiodense calculus or dilation. Pancreas: Normal density, no abnormal calcifications or inflammatory process. Spleen: Normal. Adrenals: No masses seen. Kidneys: Normal size, contour and axis. No radiodense stones or obstructive uropathy. No masses seen. Abdominal Aorta: Abdominal portion non-dilated. Atherosclerotic calcification is present. Bowel: There is diverticulosis seen in the colon but no evidence of acute diverticulitis. The append ix is distended measuring 1.4 cm in diameter. There is an appendicolith seen at the base of the appe ndix. Nya appendiceal inflammatory changes are present. There is a small amount of free fluid in t he pelvis. The stomach inadequately distended limiting evaluation. The bowel is otherwise unremarka ble. Peritoneal Cavity: No ascites, collection or mesenteric inflammatory response. No free air.There is an ovoid 9 mm calcification in the dependent portion of the pelvis (series 10, image 149). Lymph Nodes: Within normal limits. Bones: Within normal limits for the patient's age. There is a fusion of the L5-S1 disc space. Soft Tissues: There is a small fat containing umbilical hernia. PELVIS: Bladder: Symmetric distention, no gross wall thickening. Reproductive Organs: Unremarkable as visualized. Lymph Nodes: Within normal limits. Bones: Within normal limits for the patient's age. IMPRESSION: 1. The appendix measures 1.4 cm in diameter. There is an appendicolith in the base of the appendix. Nya appendiceal inflammatory changes are present. There is a small amount of free fluid in the pel vis. The findings are most concerning for acute appendicitis. 2. No abscess or free air is seen at this time. 3. Findings were discussed with Dr. Rush at 8:35 a.m. on 06/27/2024. RADIATION DOSE DELIVERED: 404.81mGy.cm Total DLP DATA REPOSITORY: All CT scans at this facility are submitted to the National Radiology Data Registry (NRDR) Dose Index Registry (DIR) with the [employer] (ACR). RADIATION OPTIMIZATION: All CT scans at this facility use at least one of these dose optimization te chniques: automated exposure control; mA and/or kV adjustment per patient size (includes targeted exa ms where dose is matched to clinical indication); or iterative reconstruction.
[2024-06-27 06:32] LABS: Bilirubin Small (Negative); Blood Negative (Negative); Clarity Clear (Clear); Glucose Negative (Negative); Ketones 40 mg/dL (Negative); Leukocyte Esterase Negative (Negative); Nitrite Negative (Negative); Specific Gravity 1.025 (1.005-1.025)
--- NOTE | 2024-06-27 06:33 | W.ED.GENAD ---
Discharge Plan Discharge Details Chief Complaint: Abd Prob Clinical Impression: Abdominal pain Primary Care Provider: Leigh Pendleton ED Provider: Danitza Nova Home Meds and New Rx's Prescriptions: No Action multivitamin Tablet 1 tab PO DAILY fluticasone propionate [Flonase Allergy Relief] 50 mcg/actuation spray,suspension 1 spray intranasal BID PRN Rx Instructions: administer in to left nostril 2 x per day magnesium oxide 420 mg tablet 420 mg PO DAILY Tums 300 mg (750 mg) tablet,chewable 300 mg PO DAILY albuterol sulfate 2.5 mg /3 mL (0.083 %) solution for nebulization 2.5 mg inhalation Q6H albuterol sulfate 90 mcg/actuation HFA aerosol inhaler 2 puff inhalation Q6H PRN (Reason: shortness of breath or wheezing) Qty: 6.7 6RF cholecalciferol (vitamin D3) 50 mcg (2,000 unit) tablet 3,000 unit PO DAILY HPI General Mode of arrival: ambulatory. Date/Time Provider Initiated Documentation: 06/27/24 06:13. Limitations to Documentation: no limitations. Information obtained by: patient. HPI Narrative: 64yo F with hx asthma presenting for abdominal pain. Symptoms started about 36 hours ago and have been worsening since onset. Initially dull, crampy, and located around her belly button. Now more severe and seems more right lower. Associated nausea, no vomiting. Last BM yesterday, normal, non bloody. No constipation or diarrhea. No fevers, chills, flank pain, dysuria, or hematuria. Otherwise in her usual state of health. Related Data Home Medications ?Medication ?Instructions ?Recorded ?Confirmed albuterol sulfate 2.5 mg/3 mL 2.5 mg inhalation Q6H 01/01/21 06/27/24 (0.083 %) solution for nebulization multivitamin 1 tab PO DAILY 11/06/22 06/27/24 albuterol sulfate 90 mcg/actuation 2 puff inhalation Q6H PRN 02/08/23 06/27/24 aerosol inhaler shortness of breath or wheezing #6.7 grams calcium carbonate (Tums) 300 mg PO DAILY 05/17/24 06/27/24 cholecalciferol (vitamin D3) 50 3,000 unit PO DAILY 05/17/24 06/27/24 mcg (2,000 unit) tablet fluticasone propionate 50 1 spray intranasal BID PRN 05/17/24 06/27/24 mcg/actuation nasal spray,suspension (Flonase Allergy Relief) magnesium oxide 420 mg tablet 420 mg PO DAILY 05/17/24 06/27/24 Previous Rx's ?Medication ?Instructions ?Recorded albuterol sulfate 90 mcg/actuation 2 puff inhalation Q6H PRN 02/08/23 aerosol inhaler shortness of breath or wheezing #6.7 grams Allergies Allergy/AdvReac Type Severity Reaction Status Date / Time Sulfa (Sulfonamide Allergy Intermediate HIVES Verified 06/27/24 06:17 Antibiotics) General Stated Complaint: Abd Prob CELINA: 3 Review of Systems Narrative: see HPI Exam Narrative Exam Narrative: General: Alert, non-toxic, in no acute distress. Head: Normocephalic, atraumatic Neck: Trachea midline, ?Neck supple. ENT: ?MMM.? No oropharygeal lesions or exudate. Cardiac: ?RRR, no murmurs appreciated Resp: No respiratory distress. CTAB. Abd: ?Soft, non-distended. TTP of periumblical and RLQ. Rebound tenderness in RLQ. No guarding. : ?No suprapubic tenderness. No CVA tenderness. Extremities: ?No deformities.? No peripheral edema. Neurologic: GCS 15. ? Moves all extremities freely against gravity Course Vital Signs Vital signs: Vital Signs Temperature 37.3 C 06/27/24 06:11 Pulse 84 06/27/24 06:11 Respiratory Rate 16 06/27/24 06:11 Blood Pressure 114/51 L 06/27/24 06:11 Pulse Oximetry 97 06/27/24 06:11 Temperature 37.3 C 06/27/24 06:11 Temperature Source Temporal Artery Scan 06/27/24 06:11 Pulse 84 06/27/24 06:11 Respiratory Rate 16 06/27/24 06:11 Blood Pressure 114/51 L 06/27/24 06:11 Blood Pressure Position Sitting 06/27/24 06:11 Pulse Oximetry 97 06/27/24 06:11 Oxygen Delivery Method Room Air 06/27/24 06:11 Oxygen Flow Rate 0 06/27/24 06:11 Pain Level 5 06/27/24 06:11 Lab/Test Results Lab/Test Results: Laboratory Tests Range/Units 06/27/24 06:19 Urine Color (Yellow) Yellow Urine Clarity (Clear) Clear Urine pH (5-8) 6.0 Ur Specific [place] (1.005-1.025) 1.025 Urine Protein (Neg-Trace) mg/dL 100 H Urine Ketones (Negative) mg/dL 40 H Urine Blood (Negative) Negative Urine Nitrite (Negative) Negative Urine Bilirubin (Negative) Small H Urine Urobilinogen (Up to 0.2) mg/dL 1.0 H Ur Leukocyte Esterase (Negative) Negative Urine Glucose (Negative) mg/dL Negative Medical Decision Making 64yo F with hx asthma presenting for abdominal pain x 36 hours. Vital signs reassuring on arrival, RLQ tenderness and rebound on exam. No pain out of proportion to suggest mesenteric ischemia. Not suggestive of nephrolithiasis or pyelonephritits. Not septic. Will treat pain initially with tylenol, toradol while awaiting results of workup. CT to evaluate for appendicitis, obstruction, diverticulitis, other acute intrabdominal pathology. Less likely ovarian/pelvic pathology and US not available at this time; would consider if CT negative. Labs reviewed as below, CBC with leukoctysosis and left shift, CMP with no actionable abnormalities, lipase not suggestive of pancreatitis, UA not infected. Cohen score 7. Will be signed out to oncoming physician, plan to followup CT results and reassess. Lab Data Lab results reviewed: Yes I reviewed the patient's lab results. Labs: Laboratory Tests Range/Units 06/27/24 06:19 WBC (4.4-10.8) 10^3/uL 15.65 H RBC (3.93-5.22) 10^6/uL 4.31 Hgb (11.2-15.7) g/dL 13.6 Hct (36.0-46.0) % 40.5 MCV (80-95) fL 94 MCH (27.0-33.0) pg 31.6 MCHC (32.0-36.0) % 33.6 RDW (11.7-14.6) % 13.0 Plt Count (130-400) 10^3/uL 240 MPV (8.0-11.0) fL 9.2 Immature Gran % % 0.3 Neutrophils % % 91.3 Lymphocytes % % 5.6 Monocytes % % 2.5 Eosinophils % % 0.1 Basophils % % 0.2 Nucleated RBC % (0.0-0.3) % 0.0 Absolute Neutrophils (1.2-6.7) 10^3/uL 14.29 H Absolute Lymphocytes (1.2-3.4) 10^3/uL 0.88 L Absolute Monocytes (0.1-0.8) 10^3/uL 0.39 Absolute Eosinophils (0.0-0.7) 10^3/uL 0.02 Absolute Basophils (0.0-0.2) 10^3/uL 0.03 VBG Lactate (<or=2.0) mmol/L 0.9 Sodium (136-145) mmol/L 141 Potassium (3.5-5.1) mmol/L 3.7 Chloride (98-107) mmol/L 101 Carbon Dioxide (21.0-32.0) mmol/L 30.5 Anion Gap (3-11) mmol/L 9.5 BUN (7-18) mg/dL 10 Creatinine (0.55-1.02) mg/dL 0.8 Est GFR (CKD-EPI 2020) (mL/min/1.73m2) 81.21 Glucose (74-106) mg/dL 158 H Calcium (8.5-10.1) mg/dL 9.0 Total Bilirubin (0.2-1.0) mg/dL 1.0 AST (15-37) U/L 22 ALT (14-59) U/L 34 Alkaline Phosphatase (46-116) U/L 81 Total Protein (6.4-8.2) g/dL 7.7 Albumin (3.4-5.0) g/dL 3.8 Lipase (<78) U/L 28 Urine Color (Yellow) Yellow Urine Clarity (Clear) Clear Urine pH (5-8) 6.0 Ur Specific [place] (1.005-1.025) 1.025 Urine Protein (Neg-Trace) mg/dL 100 H Urine Ketones (Negative) mg/dL 40 H Urine Blood (Negative) Negative Urine Nitrite (Negative) Negative Urine Bilirubin (Negative) Small H Urine Urobilinogen (Up to 0.2) mg/dL 1.0 H Ur Leukocyte Esterase (Negative) Negative Urine RBC (0-2) HPF 3-5 H Urine WBC (0-5) HPF 3-5 Ur Epithelial Cells (Negative) HPF Negative Urine Crystals (Negative) HPF Moderate Amorphous Urine Bacteria (Negative) HPF Moderate Urine Casts (Negative) LPF 0-2 Hyaline Urine Mucus (Negative) Trace Ur Culture Indicated? No Urine Glucose (Negative) mg/dL Negative Quality:SDOH Health Related Social Needs: No Data to Display PFSH All Active Problems (Updated 06/27/24 @ 07:23 by Danitza Nova MD) Abdominal pain (Acute) Left ankle pain (Acute) Externally rolled the ankle on 12/09. 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 Son No problems noted. Daughter Depression Social History (Updated 05/30/23 @ 11:03 by Lesli Miles) Smoking/Tobacco Use Status: Never Second Hand Exposure: Yes Smoking risk assessment performed?: Yes Alcohol Intake: current Alcohol Intake frequency: holidays/special occasions only Alcohol type: beer, wine and hard liquor Drug use: Never Substance use type: does not use Adopted: No Caregiver/Support person: No Foster care: No Household members: spouse Housing: house Number of Children: 3 number of grandchildren: 3 Communication Needs: None and Corrective Lenses Education Level: college Details: BS Do you need help understanding health information?: Never current occupation: retred Pets and animals: Yes Pets and animals: cat(s) and dog(s) Sexually active: Yes Do you think of yourself as: straight/heterosexual Current gender identity: female What is your relationship status?: How often do you talk on the phone with friends or family?: three or more times per week How often do you get together with friends or relatives?: three or more times per week How often do you attend hoahaoism or zoroastrian services?: 1-3 times per year Do you belong to any clubs or organized social groups?: yes Panel score (0-1 are the most socially isolated patients): 3 What type of physical activity do you participate in: none Frequency: does not exercise Blanquita/Faith: Buddhism Special blanquita needs: No Seatbelt use: always Drive intox or ride w/intox customer service driver: No Firearms in home: Yes Firearms unloaded and locked: Yes Do you feel safe at home: Yes Do you feel safe in your relationship?: Yes Victim of physical abuse: No Victim of emotional abuse: No Victim of sexual abuse: No Would you like helpful sources: No
[2024-06-27 06:47] LABS: Lactate 0.9 mmol/L (<or=2.0)
[2024-06-27 06:50] LABS: Abs Immature Grans 0.05 10^3/uL (0.0-0.06); Absolute Basophil Count 0.03 10^3/uL (0.0-0.2); Absolute Lymphocyte Count 0.88 10^3/uL (1.2-3.4); Absolute Monocyte Count 0.39 10^3/uL (0.1-0.8); Absolute Neutrophil Count 14.29 10^3/uL (1.2-6.7); Basophils % 0.2 %; Eosinophils % 0.1 %; HCT 40.5 % (36.0-46.0); HGB 13.6 g/dL (11.2-15.7); Immature Grans % 0.3 %; Lymphocytes % 5.6 %; MCH 31.6 pg (27.0-33.0); MCHC 33.6 % (32.0-36.0); MCV 94 fL (80-95); MPV 9.2 fL (8.0-11.0); Monocytes % 2.5 %; Neutrophils % 91.3 %; Platelet Count 240 10^3/uL (130-400); RBC 4.31 10^6/uL (3.93-5.22); WBC 15.65 10^3/uL (4.4-10.8)
[2024-06-27 06:55] LABS: Absolute Eosinophil Count 0.02 10^3/uL (0.0-0.7)
[2024-06-27] MEDS: Ketorolac 15 MG/ML VIAL IVP (06:58)
[2024-06-27] MEDS: ACETAMINOPHEN 1,000 MG/100 ML BAG 400 MG IVPB ×2 (06:58→19:52)
[2024-06-27 07:03] LABS: Bacteria Moderate HPF (Negative); Epithelial Cells Negative HPF (Negative)
[2024-06-27 07:04] LABS: C & S Indicated? No; Casts 0-2 Hyaline LPF (Negative); Crystals Moderate Amorphous HPF (Negative); Mucus Trace (Negative)
[2024-06-27 07:05] LABS: ALT 34 U/L (14-59); AST 22 U/L (15-37); Albumin 3.8 g/dL (3.4-5.0); Alkaline Phosphatase 81 U/L (46-116); Anion Gap 9.5 mmol/L (3-11); BUN 10 mg/dL (7-18); CO2 30.5 mmol/L (21.0-32.0); CREATININE 0.8 mg/dL (0.55-1.02); Chloride 101 mmol/L (98-107); Estimated GFR 81.21 (mL/min/1.73m2); Glucose 158 mg/dL (74-106); Lipase 28 U/L (<78); Potassium 3.7 mmol/L (3.5-5.1); Sodium 141 mmol/L (136-145); Total Protein 7.7 g/dL (6.4-8.2)
[2024-06-27] MEDS: Ondansetron 4 MG/2 ML VIAL IVP (07:43)
[2024-06-27] MEDS: Omnipaque 350 MG/ML 100 ML BTL 75 ML IJ (08:10)
[2024-06-27] MEDS: Normal Saline - Diluent 50 ML VIAL IJ (08:11)
--- NOTE | 2024-06-27 08:44 | W.EDPROG ---
Date of service: 06/27/24 Time of Service: 08:44 Medical Decision Making Patient stable, denies having any pain unless the right lower quadrant is palpated. Her CT does show findings consistent with appendicitis. Will consult general surgery, Natalie ordered. Quality:[facility] Health Related Social Needs: No Data to Display Discharge Plan Discharge Details Chief Complaint: Abd Prob Clinical Impression: Acute appendicitis Primary Care Provider: Leigh Pendleton ED Provider: Vahid Rush Home Meds and New Rx's Prescriptions: No Action multivitamin Tablet 1 tab PO DAILY fluticasone propionate [Flonase Allergy Relief] 50 mcg/actuation spray,suspension 1 spray intranasal BID PRN Rx Instructions: administer in to left nostril 2 x per day magnesium oxide 420 mg tablet 420 mg PO DAILY Tums 300 mg (750 mg) tablet,chewable 300 mg PO DAILY albuterol sulfate 2.5 mg /3 mL (0.083 %) solution for nebulization 2.5 mg inhalation Q6H albuterol sulfate 90 mcg/actuation HFA aerosol inhaler 2 puff inhalation Q6H PRN (Reason: shortness of breath or wheezing) Qty: 6.7 6RF cholecalciferol (vitamin D3) 50 mcg (2,000 unit) tablet 3,000 unit PO DAILY
--- NOTE | 2024-06-27 09:43 | SCONE_ITS ---
Date of service: 06/27/24 Time of Service: 09:44 Assessment and Plan Assessment and plan (1) Acute appendicitis: Status: Acute Assessment and plan: 64-year-old woman who has acute appendicitis. She is hemodynamically stable and only has focal peritoneal signs. I reviewed her CT scan in careful detail. There is an appendicolith present at the base of an enlarged and thickened appendix with some periappendiceal stranding. What is most interesting is that somewhat nearby, near the midline, and clearly OUTSIDE of the appendix lumen is a calcified?appearing object which appears to me to be about the same size as the obstructing stone. There is no free air anywhere and no obvious abscess and the timing would be a little bit unusual for sarah perforation. Nonetheless, I have an index of suspicion for perforated appendicitis and that this might be an appendicolith sitting there. Will closely pay attention to this during her surgery. Overall plan: Laparoscopic appendectomy IV antibiotics DVT prophylaxis History of Present Illness Narrative: 64 yo woman with RLQ pain for the last 36 hours or so. Since it stayed constant and would not go away she came to the emergency department for evaluation. She was found to have appendicitis. Surgical history significant for . No major medical problems. PFSH All Active Problems (Updated 06/27/24 @ 08:45 by Vahid Rush MD) Acute appendicitis (Acute) Left ankle pain (Acute) Externally rolled the ankle on 12/09. 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 Son No problems noted. Daughter Depression Social History (Updated 05/30/23 @ 11:03 by Lesli Miles) Smoking/Tobacco Use Status: Never Second Hand Exposure: Yes Smoking risk assessment performed?: Yes Alcohol Intake: current Alcohol Intake frequency: holidays/special occasions only Alcohol type: beer, wine and hard liquor Drug use: Never Substance use type: does not use Adopted: No Caregiver/Support person: No Foster care: No Household members: spouse Housing: house Number of Children: 3 number of grandchildren: 3 Communication Needs: None and Corrective Lenses Education Level: college Details: BS Do you need help understanding health information?: Never current occupation: retred Pets and animals: Yes Pets and animals: cat(s) and dog(s) Sexually active: Yes Do you think of yourself as: straight/heterosexual Current gender identity: female What is your relationship status?: How often do you talk on the phone with friends or family?: three or more times per week How often do you get together with friends or relatives?: three or more times per week How often do you attend sabianism or shinto services?: 1-3 times per year Do you belong to any clubs or organized social groups?: yes Panel score (0-1 are the most socially isolated patients): 3 What type of physical activity do you participate in: none Frequency: does not exercise Blanquita/Jehovah'S Witness: Congregation Special blanquita needs: No Seatbelt use: always Drive intox or ride w/intox regional company truck driver: No Firearms in home: Yes Firearms unloaded and locked: Yes Do you feel safe at home: Yes Do you feel safe in your relationship?: Yes Victim of physical abuse: No Victim of emotional abuse: No Victim of sexual abuse: No Would you like helpful sources: No Exam Narrative Exam Narrative: Gen: Non-toxic, comfortable and interactive Neuro: Alert and oriented x3 Psych: Good mood and affect. Good insight and understanding into condition. Chest: Non-labored breathing, no wheezing, no visible shortness of breath. Heart: Regular Abdomen: Soft, nondistended, focal right lower quadrant tenderness around McBurney's point. The other 3 quadrants are NOT tender. Results Last Vital Signs Temp 99.2 F 06/27/24 06:11 Pulse 70 06/27/24 09:30 Resp 16 06/27/24 06:11 BP 96/52 L 06/27/24 08:01 Pulse Ox 91 L 06/27/24 09:30 Labs 06/27/24 06:19 06/27/24 06:19 Labs: Laboratory Results - last 24 hr 06/27/24 06:19 WBC 15.65 H RBC 4.31 Hgb 13.6 Hct 40.5 MCV 94 MCH 31.6 MCHC 33.6 RDW 13.0 Plt Count 240 MPV 9.2 Immature Gran % 0.3 Neutrophils % 91.3 Lymphocytes % 5.6 Monocytes % 2.5 Eosinophils % 0.1 Basophils % 0.2 Nucleated RBC % 0.0 Absolute Neutrophils 14.29 H Absolute Lymphocytes 0.88 L Absolute Monocytes 0.39 Absolute Eosinophils 0.02 Absolute Basophils 0.03 VBG Lactate 0.9 Sodium 141 Potassium 3.7 Chloride 101 Carbon Dioxide 30.5 Anion Gap 9.5 BUN 10 Creatinine 0.8 Est GFR (CKD-EPI 2020) 81.21 Glucose 158 H Calcium 9.0 Total Bilirubin 1.0 AST 22 ALT 34 Alkaline Phosphatase 81 Total Protein 7.7 Albumin 3.8 Lipase 28 Urine Color Yellow Urine Clarity Clear Urine pH 6.0 Ur Specific [place] 1.025 Urine Protein 100 H Urine Ketones 40 H Urine Blood Negative Urine Nitrite Negative Urine Bilirubin Small H Urine Urobilinogen 1.0 H Ur Leukocyte Esterase Negative Urine RBC 3-5 H Urine WBC 3-5 Ur Epithelial Cells Negative Urine Crystals Moderate Amorphous Urine Bacteria Moderate Urine Casts 0-2 Hyaline Urine Mucus Trace Ur Culture Indicated? No Urine Glucose Negative
[2024-06-27] MEDS: Normal Saline 1,000 ML 125 ML IV (09:56)
--- NOTE | 2024-06-27 11:44 | ANES.PREOP_ITS ---
General Info Date of Service Date Performed: 06/27/24 Height: 5 ft 1 in Weight: 63.503 kg Body Mass Index (BMI): 26.4 Surgical Procedure: Operation Date: 06/27/24 14:40 Proposed Procedure Side Surgeon p Appendectomy Laparoscopic Raymundo Mcdaniels MD Meds Allergies and Home Medications Allergies Allergy/AdvReac Type Severity Reaction Status Date / Time Sulfa (Sulfonamide Allergy Intermediate HIVES Verified 06/27/24 06:17 Antibiotics) Home Medication ?Medication ?Instructions ?Recorded albuterol sulfate 2.5 mg/3 mL 2.5 mg inhalation Q6H 01/01/21 (0.083 %) solution for nebulization multivitamin 1 tab PO DAILY 11/06/22 albuterol sulfate 90 mcg/actuation 2 puff inhalation Q6H PRN 02/08/23 aerosol inhaler shortness of breath or wheezing #6.7 grams calcium carbonate (Tums) 300 mg PO DAILY 05/17/24 cholecalciferol (vitamin D3) 50 3,000 unit PO DAILY 05/17/24 mcg (2,000 unit) tablet fluticasone propionate 50 1 spray intranasal BID PRN 05/17/24 mcg/actuation nasal spray,suspension (Flonase Allergy Relief) magnesium oxide 420 mg tablet 420 mg PO DAILY 05/17/24 Current Visit Medications: Current Medications Generic Name Dose Route Start Last Admin Trade Name Freq PRN Reason Stop Dose Admin Sodium Chloride 1,000 mls @ 125 mls/hr 06/27/24 09:00 06/27/24 09:56 Saline 1000ml Bag IV 125 mls/hr INFUSION ABDI Administration Iohexol 75 ml 06/27/24 08:15 06/27/24 08:10 Omnipaque 350 Mg/Ml 100 Ml Btl IJ 07/27/24 23:59 75 ml DIRECTED ABDI Administration Sodium Chloride 50 ml 06/27/24 08:15 06/27/24 08:11 Normal Saline - Diluent 50 Ml Vial IJ 50 ml .FOR DI USE ABDI Administration PFSH Active Problems Active Problems: Problem Status Onset Code Acute appendicitis Acute K35.80 Left ankle pain Acute M25.572 Colonic polyp Acute K63.5 Asthma Chronic J45.909 Medical History Medical History Anxiety Arthritis Carpal tunnel syndrome right upper limb Colon cancer screening COVID-19 Elbow tendinitis Enlarged lymph nodes Glaucoma 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 stated when she delivered her 3rd child she had a reaction to anesthesia where her face swelled up, but has not had any reactions since then with any colonoscopies that she has had since then. Surgical History Surgical History H/O section x3 H/O tubal ligation S/P skin biopsy (~11/20/10) Tobacco Smoking/Tobacco Use Status: Never Passive smoking exposure: No Second hand exposure: Yes Alcohol Alcohol Intake: current Alcohol intake frequency: holidays/special occasions only Alcohol type: beer, wine and hard liquor Substance Use Substance use: Never Substance use type: does not use Vital Signs and Lab Results Vital Signs Most Recent Vital Signs in EMR: Most Recent Vital Signs Temp Pulse Resp BP Pulse Ox 37.3 C 69 17 113/54 L 94 06/27/24 06:11 06/27/24 11:31 06/27/24 11:31 06/27/24 11:31 06/27/24 11:31 Lab Results 06/27/24 06:19 06/27/24 06:19 Blood Type / Crossmatch: 2 No Data to Display Complete Blood Count: 2 White Blood Count 15.65 10^3/uL (4.4-10.8) H 06/27/24 06:19 Red Blood Count 4.31 10^6/uL (3.93-5.22) 06/27/24 06:19 Hemoglobin 13.6 g/dL (11.2-15.7) 06/27/24 06:19 Hematocrit 40.5 % (36.0-46.0) 06/27/24 06:19 Platelet Count 240 10^3/uL (130-400) 06/27/24 06:19 Venous Blood Lactate 0.9 mmol/L (<or=2.0) 06/27/24 06:19 Complete Metabolic Panel: 2 Sodium 141 mmol/L (136-145) 06/27/24 06:19 Potassium 3.7 mmol/L (3.5-5.1) 06/27/24 06:19 Chloride 101 mmol/L (98-107) 06/27/24 06:19 Carbon Dioxide 30.5 mmol/L (21.0-32.0) 06/27/24 06:19 BUN 10 mg/dL (7-18) 06/27/24 06:19 Creatinine 0.8 mg/dL (0.55-1.02) 06/27/24 06:19 Est GFR (CKD-EPI 2020) 81.21 (mL/min/1.73m2) 06/27/24 06:19 Calcium 9.0 mg/dL (8.5-10.1) 06/27/24 06:19 Albumin 3.8 g/dL (3.4-5.0) 06/27/24 06:19 Glucose 158 mg/dL (74-106) H 06/27/24 06:19 Liver Function Panel: 2 Alanine Aminotransferase (ALT/SGPT) 34 U/L (14-59) 06/27/24 06: 19 Aspartate Amino Transf (AST/SGOT) 22 U/L (15-37) 06/27/24 06:19 Coagulation Panel: 2 No Data to Display Cardiac Panel: 2 No Data to Display Arterial Blood Gas: 2 No Data to Display Venous Blood Gas: 2 No Data to Display Pancreas Panel: 2 Lipase 28 U/L (<78) 06/27/24 06:19 Thyroid Panel: 2 No Data to Display Infectious Disease: 2 No Data to Display Blood Cultures: 2 No Data to Display Toxicology Panel: 2 No Data to Display Anesthesia Assessment and Plan Anesthesia History Personal History: Other Family History: No Family History of Anesthesia Complications Exercise Tolerance Exercise Tolerance: Metabolic Equivalents>4 Pertinent Negatives Pertinent Negatives: No Symptoms of GERD, No Major Cardiovascular Symptoms or Complaints and No Major Pulmonary Symptoms or Complaints Cardiac & Pulmonary Exam Cardiac Exam: Normal S1/S2 Heart Sounds Pulmonary Exam: Clear Bilateral Breath Sounds Implantable Cardiac Device Does patient have a Pacemaker or an ICD?: No Airway Exam Known Difficult Airway: No Mallampati Class: 2 Mouth Opening: Normal (> 3cm) Thyromental Distance: Greater than 3 cm Neck Range of Motion: Full ROM Neck Circumference: Normal Teeth Condition: Normal Dentition ASA Classification ASA Score: ASA 2 Emergency Case?: No NPO Status NPO Status: NPO Clears >2 hours, Solids >8 hours Anesthesia Plan Resuscitation Status: Full Code Anesthesia Technique: General Anesthesia Airway Planned: Endotracheal Tube Monitors Used: Standard Monitors
[2024-06-27] MEDS: Lactated Ringers 1,000 ML 100 ML IV ×2 (12:22→16:05)
[2024-06-27] MEDS: Normal Saline Flush 10 ML SYR (12:24)
[2024-06-27] MEDS: Heparin 5,000 UNITS/ML VIAL 5000 UNITS SC ×2 (13:14→22:55)
--- NOTE | 2024-06-27 13:43 | ROE_ITS ---
Operative Note Operative Note Refer to Anesthesia Record Procedure Description: Procedures performed: 1. Laparoscopic partial cecectomy 2. Primary umbilical herniorrhaphy 3. Bilateral laparoscopic TAP blocks Pre-op diagnosis: Acute appendicitis, reducible primary umbilical hernia Postoperative diagnosis: Perforated appendicitis, reducible primary umbilical hernia Surgeon: Rosita Mcdaniels Anesthesia: Lobo Paper Pattern Folder: Amairani Indication for procedure: acute appendicitis on cross sectional imaging. FINDINGS: Omentum adhered to a sarah perforation at the base of the appendix. Scant feculent contamination contained in the RLQ. Partial cecectomy had to be performed to get healthy staple line. Calcified nodule attached to colon appendages was excised for biopsy purposes. Specimens: 1. Appendix 2. Pericolonic Nodule Complications: None Blood loss: 10 cc Urine output: Not measured Implants/drains: 15 Greenlandic LUBNA drain along the paracolic gutter Procedure in detail: Patient gave written consent and was in agreement with the indications, the likely benefits as well as the potential risks of surgery. She was taken back to the operating room where anesthesia was administered which was tolerated well. She was positioned supine on the operating room table and we then prepped and draped in sterile fashion. We confirmed DVT prophylaxis as well as antibiotics had been administered. When we were all in agreement with our timeout we started the procedure. A mixture of Marcaine and Exparel was injected at the umbilicus. The patient has a small primary umbilical hernia and a small stab incision was made within the umbilicus and a 5 mm trocar was used to enter the abdominal cavity through this reducible hernia defect. Insufflation was performed which was tolerated well. 2 more trocars were placed under direct visualization in the suprapubic location in the left lower quadrant. Local anesthetic was also given in each of the sites. Under direct visualization I performed TAP blocks along both abdominal sidewalls. We turned our attention to the right lower quadrant where a inflamed, indurated appendix was easily identified. The omentum was densely adherent against the cecum over top of the visualized appendix. There was a scant amount of purulent fluid with a couple of specks of feculent material in the right gutter. Gentle manipulation to free the omentum revealed a sarah, open perforation at the base of the appendix where it meets the cecum. The hole was small and easily controlled. No further gross spillage from it. Using the LigaSure I divided the mesoappendix all the way up to the base of the appendix at the level of the cecum. Next I passed the stapler across the cecum taking a good healthy cuff of cecum to ensure I healthy staple line away from the perforation site. I took care to make sure that I was not too close to the ileocecal valve. I had to use two loads on the stapler. The specimen was placed in an Endo Catch bag and removed from the abdominal cavity. The specimen was passed off the back table and placed in formalin. I searched for the calcified nodule seen on CT scan and easily found it attached to pericolonic fat of the sigmoid colon. It is unclear what it is and so I removed it using the LigaSure and placed it in a separate Endo Catch bag and removed it from the abdominal cavity. Hemostasis was excellent at the staple line. I used a suction proposal lead writer and washed out the pelvis and the paracolic gutter. A 15 Greenlandic LUBNA drain was left along the paracolic gutter and taken out of the suprapubic 5 mm port site. Using a Bakari-Emily I repaired the small defect at the umbilicus with 0 Vicryl. I also closed the 12 mm port site in the left lower quadrant using the Bakari-Emily with 0 Vicryl. The patient tolerated the procedure well. The sponge, instruments and sharps counts were correct x3 at the end of the procedure. She was extubated and taken to the PACU in hemodynamically stable condition. Date of Procedure: 06/27/24
--- NOTE | 2024-06-27 13:50 | PDOC.DSDIS_ITS ---
Date of service: 06/27/24 Discharge Plan Disposition Patient Disposition: Home Condition: Good Discharge Details Reason For Visit: Appendicitis Attending Provider: Raymundo Mcdaniels Primary Care Provider: Leigh Pendleton Home Meds and New Rx's Prescriptions: No Action multivitamin Tablet 1 tab PO DAILY fluticasone propionate [Flonase Allergy Relief] 50 mcg/actuation spray,s uspension 1 spray intranasal BID PRN Rx Instructions: administer in to left nostril 2 x per day magnesium oxide 420 mg tablet 420 mg PO DAILY Tums 300 mg (750 mg) tablet,chewable 300 mg PO DAILY albuterol sulfate 2.5 mg /3 mL (0.083 %) solution for nebulization 2.5 mg inhalation Q6H albuterol sulfate 90 mcg/actuation HFA aerosol inhaler 2 puff inhalation Q6H PRN (Reason: shortness of breath or wheezing) Qty: 6.7 6RF cholecalciferol (vitamin D3) 50 mcg (2,000 unit) tablet 3,000 unit PO DAILY Discharge Instructions Additional Instructions: Incisions: Keep clean and dry but they do not need to be covered. It is okay to shower but no tub bathing for 1 week. You can peel the glue off after 1 week. Activity: As tolerated. There are no restrictions. Return to work, as tolerated in the next few days. If you need a work note call the surgery office. Diet: Regular diet as tolerated Medications: Resume all of your usual/regular home medications Follow-up: Follow-up is optional. If you are having any issues or concerns call the surgery office immediately. If you want to have a routine follow-up that is perfectly fine and you can call and schedule an. If everything is otherwise going well, you do not need to follow-up. Pain control: Take Tylenol, 1000 mg, every 6 hours on a schedule for the next 3 days. You can use ibuprofen in addition to Tylenol and use the narcotic medication only as necessary for pain preventing you from sleeping. Overall: Symptoms should not be worsening. If you have any difficulty breathing or you have return of symptoms of brought you to the hospital or your pain is otherwise worsening each day and you should call the doctor's office or come into the hospital to be checked out. Activity:: Activity as Tolerated Diet:: As Tolerated DS: Diagnosis Discharge Diagnosis (1) Acute appendicitis: Status: Acute
--- NOTE | 2024-06-27 14:20 | APP_PTH ---
PATIENT: Melisa Mas LOC: [id number]#:[id number] AGE/SX: 64/F ROOM: RE06/27/[address]: Raymundo Mcdaniels : 1960 BED: A DIS: 06/29/2024 SPEC #: [id number] RECD: 06/27/24 18:09 STATUS: SOURAV REJaney #: [id number] JILLIAN: 06/27/24 14:[address]: Raymundo Mcdaniels DEPT: Surgical Specimen RECD BY: Meaghan Deluca ENTERED: 06/27/24 18:11 SP TYPE: Appendix OTHR DR: Leigh Pendleton, SIENNA Tissues: 1 - APPENDIX NOT INCIDENTAL 2 - APPENDIX NOT INCIDENTAL Procedures: GROSS AND MICRO LEVEL 4 GROSS AND MICRO LEVEL 3 DECALCIFICATION Comments: [id number]
[2024-06-27] MEDS: Bupivacaine LIPOSOME/PF 133 MG/10 ML VIAL IJ (14:36)
[2024-06-27] MEDS: Bupivacaine 0.25% Pres-Free 30 ML VIAL (14:36)
--- NOTE | 2024-06-27 15:30 | W.ANESPOSTOP ---
Postoperative Evaluation Date, Time and Location Date Performed: 06/27/24 Time Performed: 15:30 Patient Location: PACU Vital Signs Most Recent Imported Vital Signs: Most Recent Vital Signs Temp Pulse Resp BP Pulse Ox 36.1 C L 69 16 110/52 L 97 06/27/24 12:14 06/27/24 12:14 06/27/24 12:14 06/27/24 12:14 06/27/24 12:14 Pain Score Most Recent Pain Score: Most Recent Pain Score Pain Level 5 06/27/24 06:11 Assessment Mental Status: Arousable with meaningful communication Airway and Respiratory Function: Patent airway with normal (patient baseline) respiratory exam Cardiovascular Function: Hemodynamically Stable (PACU VS reviewed, stable, normotensive. ) Hydration Status: Adequately Hydrated Nausea & Vomiting: No Nausea or Vomiting Pain: Pain is tolerable per patient Peripheral Nerve Block: Patient did not receive a nerve block
[2024-06-27] MEDS: fentaNYL 100 MCG/2 ML VIAL IVP ×2 (15:43→15:53)
--- NOTE | 2024-06-27 16:19 | W.ANESPOSTOP ---
Postoperative Evaluation Date, Time and Location Date Performed: 06/27/24 Time Performed: 16:20 Patient Location: PACU Vital Signs Most Recent Imported Vital Signs: Most Recent Vital Signs Temp Pulse Resp BP Pulse Ox 36.4 C L 70 17 98/42 L 92 06/27/24 16:08 06/27/24 15:55 06/27/24 15:55 06/27/24 15:55 06/27/24 15:55 Most Recent Vital Signs Temp Pulse Resp BP Pulse Ox 36.1 C L 69 16 110/52 L 97 06/27/24 12:14 06/27/24 12:14 06/27/24 12:14 06/27/24 12:14 06/27/24 12:14 Pain Score Most Recent Pain Score: Most Recent Pain Score Pain Level 1 06/27/24 16:08 Assessment Mental Status: Awake (Alert & Oriented to Patient Baseline) Airway and Respiratory Function: Patent airway with normal (patient baseline) respiratory exam Cardiovascular Function: Hemodynamically Stable Hydration Status: Adequately Hydrated Nausea & Vomiting: No Nausea or Vomiting Pain: Pain is tolerable per patient Peripheral Nerve Block: Patient did not receive a nerve block
[2024-06-27] MEDS: PIPERACILLIN/TAZO 3.375 GM in Normal Saline 50 ML IVPB ×2 (17:10→22:54)
[2024-06-27] MEDS: Normal Saline Flush 10 ML SYR IVP (17:10)
[2024-06-28] MEDS: ACETAMINOPHEN 1,000 MG/100 ML BAG 400 MG IVPB ×4 (01:58→20:13)
[2024-06-28] MEDS: PIPERACILLIN/TAZO 3.375 GM in Normal Saline 50 ML IVPB ×4 (04:30→22:01)
[2024-06-28] MEDS: Heparin 5,000 UNITS/ML VIAL 5000 UNITS SC ×3 (06:10→22:01)
[2024-06-28 06:46] LABS: Abs Immature Grans 0.02 10^3/uL (0.0-0.06); Absolute Basophil Count 0.03 10^3/uL (0.0-0.2); Absolute Lymphocyte Count 0.46 10^3/uL (1.2-3.4); Absolute Monocyte Count 0.39 10^3/uL (0.1-0.8); Absolute Neutrophil Count 8.93 10^3/uL (1.2-6.7); Basophils % 0.3 %; HCT 35.4 % (36.0-46.0); HGB 11.8 g/dL (11.2-15.7); Immature Grans % 0.2 %; Lymphocytes % 4.7 %; MCH 31.1 pg (27.0-33.0); MCHC 33.3 % (32.0-36.0); MCV 93 fL (80-95); MPV 9.6 fL (8.0-11.0); Neutrophils % 90.8 %; Platelet Count 169 10^3/uL (130-400); RBC 3.79 10^6/uL (3.93-5.22); RDW 13.1 % (11.7-14.6); RDW-SD 44.9 fL; WBC 9.83 10^3/uL (4.4-10.8)
[2024-06-28 06:52] LABS: Anion Gap 8.7 mmol/L (3-11); BUN 9 mg/dL (7-18); CO2 26.3 mmol/L (21.0-32.0); Calcium 8.6 mg/dL (8.5-10.1); Chloride 103 mmol/L (98-107); Estimated GFR 62.13 (mL/min/1.73m2); Glucose 176 mg/dL (74-106); Potassium 3.3 mmol/L (3.5-5.1); Sodium 138 mmol/L (136-145)
[2024-06-28 08:11] VITALS: BP 116/60; PULSE 79; RESP 16; TEMP 36.8; O2SAT 93
[2024-06-28] MEDS: Magnesium Oxide 400 MG TAB PO (08:40)
[2024-06-28] MEDS: Cholecalciferol (Vitamin D3) 1,000 UNIT TAB 3000 UNITS PO (08:40)
[2024-06-28] MEDS: Calcium Carbonate *TUMS* 500 MG CHEW 750 MG PO (08:41)
[2024-06-28] MEDS: Multivitamin TAB 1 TAB PO (08:41)
--- NOTE | 2024-06-28 08:41 | PGE_ITS ---
Date of Service Date of service: 06/28/24 Time of Service: 09:30 Assessment and Plan Assessment and plan (1) Perforated appendicitis: Status: Acute Assessment and plan: 64 yo woman POD 1 from [facility] for peforated appendicitis. HD stable. Doing well. No fevers. No leukocytosis today. Tolerating diet. PLAN: Cont IV abx Reg diet Heplock IVF Drain teaching DC home tomorrow morning Subjective Subjective Interval history since last seen: Feels well. No fevers. No complaints. Exam Narrative Exam Narrative: Gen: Nontoxic and comfortable Abdomen: Soft, nondistended and really not tender anywhere. Incisions look good. LUBNA drain is 25cc and very purulent. Objective Last Vital Signs Temp 98.2 F 06/28/24 08:11 Pulse 79 06/28/24 08:11 Resp 16 06/28/24 08:11 BP 116/60 06/28/24 08:11 Pulse Ox 93 06/28/24 08:11 Laboratory Results - last 24 hr 06/28/24 06:04 WBC 9.83 RBC 3.79 L Hgb 11.8 Hct 35.4 L MCV 93 MCH 31.1 MCHC 33.3 RDW 13.1 Plt Count 169 MPV 9.6 Immature Gran % 0.2 Neutrophils % 90.8 Lymphocytes % 4.7 Monocytes % 4.0 Eosinophils % 0.0 Basophils % 0.3 Nucleated RBC % 0.0 Absolute Neutrophils 8.93 H Absolute Lymphocytes 0.46 L Absolute Monocytes 0.39 Absolute Eosinophils 0.00 Absolute Basophils 0.03 Sodium 138 Potassium 3.3 L Chloride 103 Carbon Dioxide 26.3 Anion Gap 8.7 BUN 9 Creatinine 1.0 Est GFR (CKD-EPI 2020) 62.13 Glucose 176 H Calcium 8.6 Time Spent with Patient Time Spent with Patient: 25-34 minutes Time was spent: preparing to see the patient(eg.review tests), ordering medications,tests, procedures, indepentently interpreting results, counseling the patient and care coordination
[2024-06-28] MEDS: Normal Saline Flush 10 ML SYR IVP ×5 (09:01→20:14)
--- NOTE | 2024-06-28 09:46 | INITIAL_ITS ---
Date of service: 06/28/24 Time of Service: 09:46 Care Management Initial Assmt Initial Assessment Reason for Hospitalization: appendicitis Functional Status/Living Situation Patient Presentation: Melisa was sitting up in bed when CM met with her. She was very pleasant in manner and easily engaged with CM. Melisa was admitted with acute appendicitis. She went to the OR yesterday and had a partial cecectomy, Primary umbilical herniorhaphy and bilateral laparoscopic TAP blocks performed. She informed CM that she is feeling good and anticipates being discharged tomorrow.Melisa lives with her Ady in a single family home in [place]. They have 3 adult children; two children live locally and one lives in [place], [place]. 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 She is independent at baseline and does not receive any services. Town of Residence: [place] Resides with: Spouse ( Ady) Significant Other/Family: [facility] Employment Status: Employed ([employer]) Instrumental Activities of Daily Living (ADLs): Independent Medications Medication Management: No Issues/Barriers identified Advance Directives Advance Directives: Do you have an Advance Directive: N 07/17/20 08:42 AD On File at [facility]: N 07/17/20 08:42 Date Asked 06/27/24 06/27/24 06:20 AD Date Reviewed COLST On File at [facility] COLST Date Scanned Code Status Resuscitation Status Full Code Insurance Coverage/Financial Issues Insurance: BC Anthem Medicare Advantage Care Team Visit Care Team Role Provider Type Leigh Pendleton NP Primary Care Provider NURSE PRACTITIONER Vahid Rush MD Emergency Provider [facility] STAFF PHYSICIAN Raymundo Mcdaniels MD Admit Provider [facility] STAFF PHYSICIAN Attending Provider Discharge Potential Discharge Needs: Surgical F/U Appt Anticipated Barriers to Discharge: None Identified Patient/Family Education Needs: Review discharge instructions, discuss Ask Me Three Transportation: Private vehicle Plan: Anticipate Melisa will be discharged home with no new services. She will follow up with her surgeon and vasquez of care and transport with family. CM will follow and continue to support discharge planning efforts. Social Determinants of Health Screening Social Determinants of Health last assessed: 06/28/24 Will the Patient Participate in the Screening?: Yes Do you worry about having a steady place to live?: no Problems where you live: no known problems In the past 12 months, have you had to go without electric, gas, oil or water in your home?: no Have you or anyone in your house had to go without enough food to eat?: no Has lack of transportation kept you from medical appointments or from doing things needed for daily living?: no Has anyone in your life made you feel unsafe or unsupported?: no How hard is it for you to pay for the very basics like food, housing, medical care, and heating? Would you say it is:: Not hard at all Do you want help finding or keeping work or a job?: I do not need or want help If for any reason you need help with day-to-day activities such as bathing, preparing meals, shopping, managing finances, etc., do you get the help you need?: I don?t need any help How often do you feel lonely or isolated from those around you?: Never Do you speak a language other than Malay at home?: No Does the patient want assistance with any of the above?: No PFSH All Active Problems Acute appendicitis (Acute) Left ankle pain (Acute) Externally rolled the ankle on 12/09. 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 Son No problems noted. Daughter Depression Social History (Updated 05/30/23 @ 11:03 by Lesli Garibay Smoking/Tobacco Use Status: Never Second Hand Exposure: Yes Smoking risk assessment performed?: Yes Alcohol Intake: current Alcohol Intake frequency: holidays/special occasions only Alcohol type: beer, wine and hard liquor Drug use: Never Substance use type: does not use Adopted: No Caregiver/Support person: No Foster care: No Household members: spouse Housing: house Number of Children: 3 number of grandchildren: 3 Communication Needs: None and Corrective Lenses Education Level: college Details: BS Do you need help understanding health information?: Never current occupation: retred Pets and animals: Yes Pets and animals: cat(s) and dog(s) Sexually active: Yes Do you think of yourself as: straight/heterosexual Current gender identity: female What is your relationship status?: How often do you talk on the phone with friends or family?: three or more times per week How often do you get together with friends or relatives?: three or more times per week How often do you attend advent or alevism services?: 1-3 times per year Do you belong to any clubs or organized social groups?: yes Panel score (0-1 are the most socially isolated patients): 3 What type of physical activity do you participate in: none Frequency: does not exercise Blanquita/Presybeterian: Bahai Special blanquita needs: No Seatbelt use: always Drive intox or ride w/intox company truck driver: No Firearms in home: Yes Firearms unloaded and locked: Yes Do you feel safe at home: Yes Do you feel safe in your relationship?: Yes Victim of physical abuse: No Victim of emotional abuse: No Victim of sexual abuse: No Would you like helpful sources: No
[2024-06-28 09:56] VITALS: O2SAT 95
[2024-06-28 20:33] VITALS: BP 126/54; PULSE 86; RESP 18; TEMP 36.7; O2SAT 96
--- NOTE | 2024-06-28 21:38 | DSE_ITS ---
Date of service: 06/29/24 Time of Service: 21:38 DS: Diagnosis Discharge Diagnosis (1) Perforated appendicitis: Status: Acute Asessment and Plan: See progress note from 06/29 Discharge Plan Disposition Patient Disposition: Home Condition: Good Discharge Details Reason For Visit: Appendicitis Admit Date/Time: 06/27/24 16:52 Admit Provider: Raymundo Mcdaniels Attending Provider: Raymundo Mcdaniels [facility] Course: 64 yo woman presented with appendicitis. Taken to OR and lap appy was performed. Appendix was found to be grossly perforated at time of operation. She was kept post-op with a drain and IV Abx. She did well and was discharged home on a regular diet on POD 2. She will followup for drain removal in the office on POD 4. Home Meds and New Rx's Prescriptions: New amoxicillin-pot clavulanate [Augmentin] 500-125 mg tablet 1 tab PO Q12H Qty: 10 0RF No Action multivitamin Tablet 1 tab PO DAILY fluticasone propionate [Flonase Allergy Relief] 50 mcg/actuation spray,suspension 1 spray intranasal BID PRN Rx Instructions: administer in to left nostril 2 x per day magnesium oxide 420 mg tablet 420 mg PO DAILY Tums 300 mg (750 mg) tablet,chewable 300 mg PO DAILY albuterol sulfate 2.5 mg /3 mL (0.083 %) solution for nebulization 2.5 mg inhalation Q6H albuterol sulfate 90 mcg/actuation HFA aerosol inhaler 2 puff inhalation Q6H PRN (Reason: shortness of breath or wheezing) Qty: 6.7 6RF cholecalciferol (vitamin D3) 50 mcg (2,000 unit) tablet 3,000 unit PO DAILY Discharge Instructions Additional Instructions: Incisions: Keep clean and dry but they do not need to be covered. It is okay to shower but no tub bathing for 1 week. You can peel the glue off after 1 week. DRAIN: Keep emptied twice daily. No need to record how much. Activity: As tolerated. There are no restrictions. Return to work, as tolerated in the next few days. If you need a work note call the surgery office. Diet: Regular diet as tolerated Medications: Resume all of your usual/regular home medications Follow-up: Call and schedule a followup visit for Thursday to have your drain removed. Pain control: Take Tylenol, 1000 mg, every 6 hours on a schedule for the next 3 days. Overall: Symptoms should not be worsening. If you have any difficulty breathing or you have return of symptoms of brought you to the hospital or your pain is otherwise worsening each day and you should call the doctor's office or come into the hospital to be checked out. Activity:: Activity as Tolerated Equipment/Supplies:: No Equipment Needed Diet:: As Tolerated DS: Summary Time Spent with Patient providing and/or coordinating discharge services: Less than 30 minutes Status at Discharge Functional status at discharge: independent ambulation Overall status at discharge: patient is progressing back to baseline Mental Status: mental status grossly normal Speech and Movement: speech and movement normal Mood: congruent mood Affect: normal affect Quality:SDOH Health Related Social Needs: No Data to Display Exam Psych Mental Status: mental status grossly normal Speech and Movement: speech and movement normal Mood: congruent mood Affect: normal affect DS: Data Vitals/I&O Vitals and I&O: Vital Signs Temperature 98.1 F 06/28/24 20:33 Temperature Source Temporal Artery Scan 06/28/24 20:33 Pulse 86 06/28/24 20:33 Pulse Rhythm Regular 06/27/24 16:30 Pulse 66 06/27/24 15:55 Respiratory Rate 18 06/28/24 20:33 Respiratory Effort Normal, Non-Labored 06/27/24 16:30 Respiratory Depth Normal 06/27/24 16:30 Respiratory Pattern Normal 06/27/24 16:30 Blood Pressure 126/54 L 06/28/24 20:33 Blood Pressure Mean 59 06/27/24 15:55 Blood Pressure Position Sitting 06/27/24 06:11 Pulse Oximetry 96 06/28/24 20:33 Respiratory End-tidal CO2 39 06/27/24 15:55 Oxygen Delivery Method Room Air 06/28/24 20:33 Oxygen Flow Rate 0 06/28/24 20:33 Pain Level 0 06/28/24 20:33 Intake & Output 06/27/24 06/28/24 06/28/24 23:59 11:59 23:59 Intake Total 2330 / 2630 1940 / 2310 370 / 2310 Output Total 145 / 145 775 / 1925 1150 / 1925 Balance 2185 / 2485 1165 / 385 -780 / 385 Weight 138 lb 14.259 oz Intake: IV 2110 / 2410 1240 / 1490 250 / 1490 Oral 220 / 220 700 / 820 120 / 820 Output: Drainage 145 / 145 25 / 50 25 / 50 Right Lower Anterior Abdomen 145 / 145 25 / 50 25 / 50 Urine 750 / 1875 1125 / 1875 Other: Urine Color Yellow Dark Marli Yellow Urine Appearance Clear Clear Urine Odor Normal None None Emesis Description None Data Completed and Pending Labs on day of discharge: Labs from last 24 hours 06/28/24 06:04 WBC 9.83 RBC 3.79 L Hgb 11.8 Hct 35.4 L MCV 93 MCH 31.1 MCHC 33.3 RDW 13.1 Plt Count 169 MPV 9.6 Immature Gran % 0.2 Neutrophils % 90.8 Lymphocytes % 4.7 Monocytes % 4.0 Eosinophils % 0.0 Basophils % 0.3 Nucleated RBC % 0.0 Absolute Neutrophils 8.93 H Absolute Lymphocytes 0.46 L Absolute Monocytes 0.39 Absolute Eosinophils 0.00 Absolute Basophils 0.03 Sodium 138 Potassium 3.3 L Chloride 103 Carbon Dioxide 26.3 Anion Gap 8.7 BUN 9 Creatinine 1.0 Est GFR (CKD-EPI 2020) 62.13 Glucose 176 H Calcium 8.6 PFSH All Active Problems (Updated 06/28/24 @ 21:36 by Raymundo Mcdaniels MD) Perforated appendicitis (Acute) Acute appendicitis (Acute) Left ankle pain (Acute) Externally rolled the ankle on 12/09. 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 Son No problems noted. Daughter Depression Social History (Updated 05/30/23 @ 11:03 by Lesli Miles) Smoking/Tobacco Use Status: Never Second Hand Exposure: Yes Smoking risk assessment performed?: Yes Alcohol Intake: current Alcohol Intake frequency: holidays/special occasions only Alcohol type: beer, wine and hard liquor Drug use: Never Substance use type: does not use Adopted: No Caregiver/Support person: No Foster care: No Household members: spouse Housing: house Number of Children: 3 number of grandchildren: 3 Communication Needs: None and Corrective Lenses Education Level: college Details: BS Do you need help understanding health information?: Never current occupation: retred Pets and animals: Yes Pets and animals: cat(s) and dog(s) Sexually active: Yes Do you think of yourself as: straight/heterosexual Current gender identity: female What is your relationship status?: How often do you talk on the phone with friends or family?: three or more times per week How often do you get together with friends or relatives?: three or more times per week How often do you attend anglican or sikhism services?: 1-3 times per year Do you belong to any clubs or organized social groups?: yes Panel score (0-1 are the most socially isolated patients): 3 What type of physical activity do you participate in: none Frequency: does not exercise Blanquita/Christianity: Quaker Special blanquita needs: No Seatbelt use: always Drive intox or ride w/intox team driver: No Firearms in home: Yes Firearms unloaded and locked: Yes Do you feel safe at home: Yes Do you feel safe in your relationship?: Yes Victim of physical abuse: No Victim of emotional abuse: No Victim of sexual abuse: No Would you like helpful sources: No Time Spent with Patient Time Spent with Patient: <45 minutes Time was spent: ordering medications,tests, procedures, referring, communicating with other health home care coordinator, indepentently interpreting results and care coordination
[2024-06-29] MEDS: ACETAMINOPHEN 1,000 MG/100 ML BAG 400 MG IVPB ×2 (02:51→09:06)
[2024-06-29] MEDS: Normal Saline Flush 10 ML SYR IVP (02:52)
[2024-06-29] MEDS: PIPERACILLIN/TAZO 3.375 GM in Normal Saline 50 ML IVPB ×2 (03:11→10:34)
[2024-06-29] MEDS: Heparin 5,000 UNITS/ML VIAL 5000 UNITS SC (06:05)
[2024-06-29 08:25] VITALS: BP 116/64; PULSE 78; RESP 14; TEMP 36.3; O2SAT 93
--- NOTE | 2024-06-29 08:58 | PDOC.CMDIS ---
Date of service: 06/29/24 Time of Service: 08:58 LACE Index Scoring Tool Questions: Length of Stay (in days): 2 Was the patient admitted via the E.D.?: Yes E.D. Visits: 1 Answers: Total Score: 6 Risk of Readmission: Low Risk Care Management Discharge Plan Reason for Hospitalization: appendicitis Discharge Plan: Melisa will be discharged home with no new services. She will follow up with her surgeon on Thursday and transport with family. Patient/Family Education Needs: Review discharge instructions, limitations, follow up plan and discuss Ask Me Three [facility] Health Related Social Needs: No Data to Display
[2024-06-29] MEDS: Calcium Carbonate *TUMS* 500 MG CHEW 750 MG PO (09:02)
[2024-06-29] MEDS: Multivitamin TAB 1 TAB PO (09:03)
[2024-06-29] MEDS: Cholecalciferol (Vitamin D3) 1,000 UNIT TAB 3000 UNITS PO (09:05)
[2024-06-29] MEDS: Magnesium Oxide 400 MG TAB PO (09:05)
[2024-06-29 09:29] VITALS: BP 130/63; PULSE 82; RESP 18; TEMP 36.4; O2SAT 93
== END 2024-06-29 13:26 | disposition home or self-care (01) | DRG 329 ==
LOC: ER 11:14 → SUR 11:58 → MS 16:52
PROVIDERS: Student in an Organized Health Care Education/Training Program; Admitting Provider Student in an Organized Health Care Education/Training Program; Emergency Provider Emergency Medicine; PCP Nurse Practitioner Family; Visit Provider Student in an Organized Health Care Education/Training Program
PROC: 0DTJ4ZZ Resection of Appendix, Percutaneous Endoscopic Approach (ICD-10-PCS; CPT 44970; principal; 2024-06-27 14:30)
DX: K35.32 Acute appendicitis with perforation, localized peritonitis, and gangrene, without abscess (principal); K55.069 Acute infarction of intestine, part and extent unspecified; K38.8 Other specified diseases of appendix; K42.9 Umbilical hernia without obstruction or gangrene; K63.89 Other specified diseases of intestine; R59.9 Enlarged lymph nodes, unspecified; H40.9 Unspecified glaucoma; E78.2 Mixed hyperlipidemia; L80 Vitiligo
CPT/HCPCS: 44970; 00123; 36415; 80048; 80053; 83690; 88305; 96361; 96365; 96367; 96375; 99223; 99285; 74177; 81003; 81015; 83605; 85025; 88304; 88311; J0131; J0665; J0666; J1100; J1644; J1885; J2371; J2405; J2543; J2704; J3010; J3490

== ENCOUNTER → 2024-07-01 14:01 | Outpatient (BNVA) | payer MEDICARE, SELFPAY | PROVIDERS: PCP Nurse Practitioner Family; Referring Provider Nurse Practitioner Family; Visit Provider Surgery | DX: Z48.815 Encounter for surgical aftercare following surgery on the digestive system (principal); K35.32 Acute appendicitis with perforation, localized peritonitis, and gangrene, without abscess ==

== ENCOUNTER 2024-07-07 15:05 | Outpatient (REF) | payer MEDICARE, SELFPAY ==
[2024-07-07 14:06] LABS: Bilirubin Negative (Negative); Blood Negative (Negative); Clarity Turbid (Clear); Glucose Negative (Negative); Ketones Trace mg/dL (Negative); Leukocyte Esterase Negative (Negative); Nitrite Negative (Negative); Specific Gravity 1.025 (1.005-1.025); Urobilinogen 0.2 mg/dL (Up to 0.2); pH 5.5 (5-8)
== END 2024-07-07 15:06 | disposition home or self-care (01) ==
LOC: LBN 15:05
PROVIDERS: PCP Nurse Practitioner Family; Visit Provider Nurse Practitioner Family
DX: R10.9 Unspecified abdominal pain (principal); R30.0 Dysuria; L29.3 Anogenital pruritus, unspecified; R10.32 Left lower quadrant pain
CPT/HCPCS: 81003; 87480; 87510; 87660

== ENCOUNTER 2024-08-25 17:30 | Outpatient (REF) | payer MEDICARE, SELFPAY ==
[2024-08-25 21:31] LABS: Bilirubin Negative (Negative); Blood Negative (Negative); Clarity Clear (Clear); Glucose Negative (Negative); Ketones Negative (Negative); Leukocyte Esterase Negative (Negative); Nitrite Negative (Negative); Urobilinogen 0.2 mg/dL (Up to 0.2); pH 6.5 (5-8)
== END 2024-08-25 17:31 | disposition home or self-care (01) ==
LOC: LBN 17:30
PROVIDERS: PCP Nurse Practitioner Family; Visit Provider Physician Assistant
DX: R30.0 Dysuria (principal); R39.9 Unspecified symptoms and signs involving the genitourinary system
CPT/HCPCS: 81003; 87480; 87510; 87660

== ENCOUNTER 2025-02-18 16:23 | Outpatient (REF) | payer MEDICARE, BC, SELFPAY | END 2025-02-18 16:24 | disposition home or self-care (01) | LOC: LBN 16:23 | PROVIDERS: PCP Nurse Practitioner Family; Visit Provider Nurse Practitioner Family | DX: N30.00 Acute cystitis without hematuria (principal) | CPT/HCPCS: 87086 ==